=== PATIENT | female | born 1955 | race African-American/Black ===

== ENCOUNTER 2016-06-23 13:33 | Inpatient (IN) ==
[2016-06-23] MEDS ORDERED: ALBUTEROL/IPRATROPIUM 3 ML NEB RESP TX STA (14:27)
[2016-06-23] MEDS ORDERED: methylPREDNISolone SOD SUC 125 MG/2 ML VIAL IV STA (14:27)
--- NOTE | 2016-06-23 14:29 | Emergency Department Note ---
Arrival - Arrival Chief Complaint: Upper Respiratory Stated Complaint: has asthma severe SOB ED Nursing Triage Note: c/o having asthma attack that started last evening, states took extra breathing tx with no releif, + wheezing, + coughing, " its hard for me to breath" Mode of Arrival: Ambulatory Time Seen by Provider: 06/23/16 14:25 - History of Present Illness HPI Narrative: 60-year-old female presents today with complaint of shortness of breath. States symptoms began yesterday and got progressively worse through the night. Patient has a history of COPD and states she has been taking her albuterol MDI. Reports wheezing and coughing. Denies fever or recent illness. Allergies/Adverse Reactions: Allergies Allergy/AdvReac Type Severity Reaction Status Date / Time No Known Allergies Allergy Verified 06/23/16 13:40 Home Medications: Home Medications Medication Instructions Recorded Confirmed Type Indomethacin Cap [Indocin Cap] 25 mg PO TID #30 capsule 03/11/16 Rx Levofloxacin Tab [Levaquin Tab] 750 mg PO DAILY #10 tablet 03/11/16 Rx predniSONE TAB [PredniSONE] 20 mg PO DAILY #15 tablet 03/11/16 Rx Review of System - Review of System 12 point system: reviewed and no additional remarkable complaints except as stated - Review of System Constitutional: Present: as per HPI. Absent: fever Respiratory: Present: as per HPI, cough, wheezing Cardiovascular: Absent: chest pain Medical,Surgical,& Family Hx - Medical History Respiratory: History of: Asthma - Social History Smoking Status: Smoker, status unknown Frequency of Alcohol Use: None Type of Drug Use: None Exam Physical Examination: Gen.: Well-developed, well-nourished in no acute distress HEENT: Normocephalic. Pupils equal round and reactive to light with normal extraocular movement. Ear canals clear without discharge. Tympanic membranes with good light reflex and visualization of bony structures bilaterally. Throat without swelling, erythema or exudate. Neck: Supple without lymphadenopathy or nuchal rigidity Chest: Heart regular rate and rhythm without murmur. Lungs with wheezes bilaterally and poor air entry. Abdomen: Soft and nontender without masses. Bowel sounds normoactive. Back: Without CVA or point tenderness. Extremities: Full range of motion. No joint effusion or tenderness Skin: Clean dry and intact Vital Signs: Vital Signs Temperature 97.8 F 06/23/16 13:38 Pulse Rate 70 06/23/16 13:38 Respiratory Rate 20 06/23/16 13:38 Blood Pressure 151/94 06/23/16 13:38 O2 Sat by Pulse Oximetry 96 06/23/16 13:38 Course - Reevaluation(s) Reevaluation #1: Patient states she improved however he continues to show evidence of respiratory distress with tachypnea and significant wheezing. Time: 15:50 - Consultations Consultation #1: Case discussed with Dr. Rust. He will evaluate patient in the emergency department for admission. Time: 16:25 Results - Labs CBC & BMP: 06/23/16 14:33 06/23/16 14:33 Lab Results: I have reviewed the patients labs - Diagnostic Findings Procedure: Chest x-ray: report reviewed by me (unremarkable) Disposition Clinical Impression: COPD exacerbation Case discussed with: patient, patient's family Disposition: Still a Patient Condition: Guarded Time of Disposition: 16:26
[2016-06-23] MEDS ORDERED: methylPREDNISolone SOD SUC 125 MG/2 ML VIAL ONE (14:33)
[2016-06-23 14:46] LABS: Basophils % 0.4 % (0.0-0.8); Eosinophils # 1.6 10*3/uL (0.0-0.87); Eosinophils % 16.7 % (0.00-10.9); Hematocrit 43.7 VOL% (35.7-47.0); Hemoglobin 13.9 GM/DL (12.0-16.0); Immature Granulocytes % 0.2 %; Immature Granulocytes Absolute 0.02 #; Lymphocytes % 31.1 % (21.3-54.2); Mean Corpuscular HGB Conc 31.8 GM/DL (32-36); Mean Corpuscular Hemoglobin 29 PG (27-34); Mean Corpuscular Volume 89.7 FL (87-102); Mean Platelet Volume 9.6 FL (9.6-12.0); Monocytes # 0.5 10*3/uL (0.11-0.8); Monocytes % 5.1 % (1.7-12.7); Neutrophils # 4.6 10*3/uL (1.4-7.4); Neutrophils % 46.5 % (38.7-73.9); Platelet Count 316 T/CUMM (130-400); Red Blood Count 4.87 MC/CUMM (3.8-5.5); Red Cell Distribution Width 13.6 % (9.3-17.3); White Blood Count 9.8 T/CUMM (4-12)
[2016-06-23 15:07] LABS: Calcium 9.2 MG/DL (8.5-10.1); Osmolality,Calculated 286.6 MOS/KG (273-304); Potassium 4.1 MMOL/L (3.5-5.1)
[2016-06-23 16:12] LABS: Eosinophils 15 % (0-10); Lymphocytes 27 % (20-55); Segmented Neutrophils 55 % (50-85); Total Cells Counted 100
--- NOTE | 2016-06-23 16:12 | XRay Report ---
Exam: XR chest 2V Indication: Wheezing Comparison study: March 11, 2016 Findings: The heart, mediastinum and bony structures are stable from prior. Flattening the diaphragms with mild hyperexpansion of lungs and interstitial thickening changes in the hilar regions and upper lobes bilaterally are most compatible with COPD/scarring changes, which appear similar to prior. Faint airspace opacities within the superior aspect of the right lower lobe may represent atelectasis or underlying infectious/inflammatory infiltrates. There is no pneumothorax or pleural effusion identified. Cholecystectomy clips are noted. Impression: Similar chronic interstitial changes. Faint airspace opacities within the superior aspect of the right lower lobe may represent atelectasis or underlying infectious/inflammatory infiltrates. PROCEDURE INTERPRETED AT [facility] DEPARTMENT OF RADIOLOGY Final Report Signed by: Phil Douglas
[2016-06-23] MEDS ORDERED: ONDANSETRON 4 MG/2 ML VIAL IV PRN (18:11)
[2016-06-23] MEDS ORDERED: ALBUTEROL 2.5 MG/3 ML NEB RESP TX PRN (18:11)
[2016-06-23] MEDS ORDERED: ACETAMINOPHEN 325 MG TABLET PO PRN (18:11)
[2016-06-23] MEDS: SODIUM CHLORIDE 0.9% 1,000 ML IV SCH (18:46)
[2016-06-23] MEDS: ENOXAPARIN 40 MG/0.4 ML SYRINGE SUBCUT SCH (18:47)
[2016-06-23] MEDS: LEVOFLOXACIN INJ 500 MG in PREMIX 1 EACH IV SCH (18:47)
[2016-06-23] MEDS: ALBUTEROL/IPRATROPIUM 3 ML NEB RESP TX SCH ×2 (19:52→23:41)
--- NOTE | 2016-06-23 21:06 | Hospitalist History & Physical ---
Assessment and Plan (1) COPD exacerbation Status: Acute Assessment and plan: The patient will be treated with IV antibiotics, intravenous steroids, beta agonist nebulizerd breathing therapy. Anticipated length of stay 5 days Current Visit: Yes History of Present Illness Chief complaint: cough and shortness of breath History of present illness: Ms. 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 The patient states her last hospitalization for COPD was greater than 3 years ago. The patient states that she was in her usual state of health until 3 days prior to admission to the hospital when she began noticing worse dyspnea and cough with exertion. The patient's symptoms have progressed and are now moderate to severe, continuous, and worsening. The patient is unable to go to work today she came to the emergency room for further evaluation. The patient' s symptoms are associated with fever but not with chills she does have sputum production of colored material. The patient is admitted to the hospital for COPD exacerbation. Home Medications Medication Instructions Recorded Confirmed Type Albuterol Inhaler [Proventil 2 puff INH Q6H PRN 06/23/16 06/23/16 History Inhaler] Allergies Allergy/AdvReac Type Severity Reaction Status Date / Time No Known Allergies Allergy Verified 06/23/16 13:40 Medical,Surgical,& Family Hx - Medical History Respiratory: History of: Asthma - Surgical History Abdominal Surgeries: Surgical HX of: Appendectomy, Cholecystectomy Reproductive Surgeries: Surgical HX of;: Hysterectomy - Family History Family History: Reports;: Family Heart Disease (mom) - Social History Smoking Status: Former smoker Frequency of Alcohol Use: None Type of Drug Use: None Marital Status: Lives With:: Alone Functional capacity: independent ambulation 12 point system: reviewed and no additional remarkable complaints except as stated Exam - Constitutional Vitals: Period Temp Pulse Resp BP Sys/Ash Pulse Ox Last 24 Hr 97.5 F-98.6 F 67-91 20-22 128-164/67-84 93-94 Exam: Constitutional System: Moderate distress. Mild tremulousness. Head: Normocephalic, atraumatic. Ears, Nose and Throat System: No evidence of Otitis or Mastoiditis. No epistaxis or discharge Eyes System: Pupils equal, round, and reactive. Extraocular muscles intact. Neck: Supple, without adenopathy, No jugular venous distention. No thyromegaly , neck mass, or prior surgery apparent. Respiratory System: Chest moderate air trapping and moderate wheezing to auscultation. Minimal upper airway congestion Cardiovascular System: Heart with regular rate and rhythm. No murmur. GI System: Abdomen soft, nontender. Normoactive bowel sounds present. Musculoskeletal System: limbs with no pedal edema. Full distal pulses. Neurological System: No discernable sensory deficit. No aphasia Psychiatric System: Conversation is rational Results - Labs CBC & BMP: 06/23/16 14:33 06/23/16 14:33 Lab Results: I have reviewed the past 24 hour labs - Diagnostic Findings Procedure: Chest x-ray: image reviewed by me, report reviewed by me (mild peribronchial cuffing without specific infiltrate there is flattening of diaphragms)
[2016-06-23] MEDS: ZALEPLON 5 MG CAPSULE PO PRN (21:27)
[2016-06-23] MEDS: methylPREDNISolone SOD SUC 125 MG/2 ML VIAL IV SCH (21:27)
[2016-06-24] MEDS: methylPREDNISolone SOD SUC 125 MG/2 ML VIAL IV SCH ×4 (04:21→21:00)
[2016-06-24] MEDS: ALBUTEROL/IPRATROPIUM 3 ML NEB RESP TX SCH ×5 (05:43→19:39)
[2016-06-24 06:43] LABS: Basophils % 0.1 % (0.0-0.8); Hemoglobin 11.9 GM/DL (12.0-16.0); Immature Granulocytes % 0.4 %; Immature Granulocytes Absolute 0.03 #; Lymphocytes # 1.4 10*3/uL (1.4-4.0); Lymphocytes % 16.3 % (21.3-54.2); Mean Corpuscular HGB Conc 31.3 GM/DL (32-36); Mean Corpuscular Hemoglobin 28 PG (27-34); Mean Platelet Volume 10.1 FL (9.6-12.0); Monocytes # 0.1 10*3/uL (0.11-0.8); Monocytes % 1.2 % (1.7-12.7); Neutrophils # 6.9 10*3/uL (1.4-7.4); Platelet Count 288 T/CUMM (130-400); Red Blood Count 4.22 MC/CUMM (3.8-5.5); Red Cell Distribution Width 13.5 % (9.3-17.3); White Blood Count 8.5 T/CUMM (4-12)
[2016-06-24 07:10] LABS: Calcium 8.7 MG/DL (8.5-10.1); Magnesium 2.3 MG/DL (1.8-2.4); Osmolality,Calculated 290.6 MOS/KG (273-304); Potassium 4.6 MMOL/L (3.5-5.1)
[2016-06-24] MEDS: SODIUM CHLORIDE 0.9% 1,000 ML IV SCH (09:33)
[2016-06-24] MEDS: PANTOPRAZOLE 40 MG TABLET PO SCH (09:54)
--- NOTE | 2016-06-24 15:47 | Hospitalist Progress Note ---
Assessment and Plan (1) COPD exacerbation Status: Acute Assessment and plan: The patient will be treated with IV antibiotics, intravenous steroids, beta agonist nebulizerd breathing therapy. We will continue appropriate treatment for asthma and the patient is getting better. I can reduce steroid some today. Anticipate discharge home on Saturday or Saturday. Current Visit: Yes Hospitalist: Subjective Interval history: The patient was admitted to the hospital with severe COPD. Breathing is more relaxed now and she has less wheezing. Air trapping is moderate Exam - Constitutional Vitals: Period Temp Pulse Resp BP Sys/Ash Pulse Ox Last 24 Hr 97.5 F-98.6 F 53-91 16-22 108-164/67-95 93-100 Exam: Constitutional System: Less distress. Mild tremulousness. Head: Normocephalic, atraumatic. Ears, Nose and Throat System: No evidence of Otitis or Mastoiditis. No epistaxis or discharge Eyes System: Pupils equal, round, and reactive. Extraocular muscles intact. Neck: Supple, without adenopathy, No jugular venous distention. No thyromegaly , neck mass, or prior surgery apparent. Respiratory System: Chest moderate air trapping and moderate wheezing to auscultation. Minimal upper airway congestion Cardiovascular System: Heart with regular rate and rhythm. No murmur. GI System: Abdomen soft, nontender. Normoactive bowel sounds present. Musculoskeletal System: limbs with no pedal edema. Full distal pulses. Neurological System: No discernable sensory deficit. No aphasia Psychiatric System: Conversation is rational Results - Labs CBC & BMP: 06/24/16 05:49 06/24/16 05:49 Lab Results: I have reviewed the past 24 hour labs
[2016-06-24] MEDS: ENOXAPARIN 40 MG/0.4 ML SYRINGE SUBCUT SCH ×2 (16:52→17:16)
[2016-06-24] MEDS: LEVOFLOXACIN INJ 500 MG in PREMIX 1 EACH IV SCH ×2 (16:52→17:16)
[2016-06-24] MEDS: ZALEPLON 5 MG CAPSULE PO PRN (21:01)
[2016-06-25] MEDS: ALBUTEROL/IPRATROPIUM 3 ML NEB RESP TX SCH ×6 (00:02→19:45)
[2016-06-25] MEDS: methylPREDNISolone SOD SUC 125 MG/2 ML VIAL IV SCH ×4 (03:00→18:35)
[2016-06-25] MEDS: PANTOPRAZOLE 40 MG TABLET PO SCH (08:53)
--- NOTE | 2016-06-25 11:05 | Hospitalist Progress Note ---
Assessment and Plan (1) COPD exacerbation Status: Acute Assessment and plan: Patient's symptoms are improving. We'll continue with current treatment that she is receiving. Hopefully she can be discharged tomorrow. Current Visit: Yes Hospitalist: Subjective Interval history: Patient reports feeling well and hoping that she can go home tomorrow Exam - Constitutional Vitals: Period Temp Pulse Resp BP Sys/Ash Pulse Ox Last 24 Hr 97.9 F-98.3 F 56-75 16-20 104-161/66-95 92-100 General appearance: normal weight - Head Head exam: Present: normal inspection - Eye Eye exam: Present: EOMI Pupils: Present: LELAND - ENT ENT exam: Present: normal exam - Neck Neck exam: Present: normal inspection - Respiratory Respiratory exam: Present: prolonged expiratory phase - Cardiovascular Cardiovascular exam: Present: regular rate and rhythm - GI/Abdominal GI/Abdominal exam: Present: normal bowel sounds - Extremities Exam Extremities exam: Present: normal inspection Results - Labs CBC & BMP: 06/24/16 05:49 06/24/16 05:49
[2016-06-25] MEDS: SODIUM CHLORIDE 0.9% 1,000 ML IV SCH ×2 (14:05)
[2016-06-25] MEDS: LEVOFLOXACIN INJ 500 MG in PREMIX 1 EACH IV SCH (17:30)
[2016-06-25] MEDS: ENOXAPARIN 40 MG/0.4 ML SYRINGE SUBCUT SCH (17:30)
[2016-06-26] MEDS: ALBUTEROL/IPRATROPIUM 3 ML NEB RESP TX SCH ×3 (00:10→08:08)
[2016-06-26] MEDS: methylPREDNISolone SOD SUC 125 MG/2 ML VIAL IV SCH ×2 (03:34→10:00)
[2016-06-26] MEDS: PANTOPRAZOLE 40 MG TABLET PO SCH (08:39)
[2016-06-26] MEDS: SODIUM CHLORIDE 0.9% 1,000 ML IV SCH (08:41)
--- NOTE | 2016-06-26 10:53 | Discharge Summary ---
Hospital Course - Hospital Course Hospital Course: This is a 60-year-old -[place] Citizen female who works at this [employer] for [employer] store. Patient states that her last hospitalization for COPD was greater than 3 years ago. Patient reports that she was in the usual state of health until 3 days prior to this admission which began to notice worsening dyspnea and cough with exertion. The patient's symptoms progressed and are now moderate to severe. Patient was unable go to work and came to the emergency room for further evaluation. Patient has been having a mild fever. Patient was admitted to the hospital by Dr. Barrett. She was started on IV antibiotics steroids and breathing treatments. Patient symptoms improved fairly quickly while in the hospital. She's met her maximum benefit from this hospitalization we are discharging her home - Time spent with patient Time with patient DS: Greater than 30 minutes Diagnosis - Discharge Diagnosis (1) COPD exacerbation Status: Acute Discharge Plan - Discharge Data Disposition: Disch To Home/Self Care Condition at Discharge: Stable Discharge Diet: advance to your usual diet Activity: resume usual activities as tolerated - Discharge Medications New cephALEXin [Cephalexin] 500 mg PO Q12H #14 capsule predniSONE TAB [PredniSONE] 40 mg PO DAILY #14 tablet Continue Albuterol Inhaler [Proventil Inhaler] 2 puff INH Q6H PRN #1 inhaler PRN Reason: Shortness Of Breath/Wheezing - Follow Up or Referral - Forms/Instructions Exam - Constitutional Vitals: Period Temp Pulse Resp BP Sys/Ash Pulse Ox Last 24 Hr 97.3 F-98.6 F 63-95 16-25 109-130/62-74 92-100 General appearance: normal weight - Head Head exam: Present: normal inspection - Eye Eye exam: Present: EOMI Pupils: Present: LELAND - ENT ENT exam: Present: normal exam - Neck Neck exam: Present: normal inspection - Respiratory Respiratory exam: Present: prolonged expiratory phase improved - Cardiovascular Cardiovascular exam: Present: regular rate and rhythm - GI/Abdominal GI/Abdominal exam: Present: normal bowel sounds - Extremities Exam Extremities exam: Present: normal inspection DS: Provider Date of admission: 06/23/16 16:33 Primary care physician: . No PCP Attending physician on admission: Marshal Barrett MD Discharging clinician: Rigoberto Martins MD
[2016-06-26 12:11] VITALS: BP 147/84
== END 2016-06-26 12:10 | disposition home or self-care (01) | DRG 192 ==
LOC: N.ED 13:33 → N.EDINP 16:33 → SUATTDRO 16:33 → N.5E 17:59
PROVIDERS: ADMIT Internal Medicine; ATTEND Internal Medicine

== ENCOUNTER 2017-07-14 17:16 | Inpatient (IN) ==
[2017-07-14] MEDS ORDERED: ALBUTEROL 2.5 MG/3 ML NEB RESP TX STA (17:59)
[2017-07-14] MEDS ORDERED: ONDANSETRON 4 MG/2 ML VIAL IV STA (17:59)
[2017-07-14] MEDS ORDERED: MORPHINE 2 MG/1 ML SYRINGE IV STA (17:59)
[2017-07-14] MEDS ORDERED: ONDANSETRON 4 MG/2 ML VIAL ONE ×2 (18:11→22:15)
[2017-07-14] MEDS ORDERED: MORPHINE 2 MG/1 ML SYRINGE ONE ×4 (18:11→22:16)
[2017-07-14 18:13] LABS: Basophils % 0.4 % (0.0-0.8); Eosinophils # 0.5 10*3/uL (0.0-0.87); Eosinophils % 6.7 % (0.00-10.9); Hematocrit 39.7 VOL% (35.7-47.0); Hemoglobin 13.2 GM/DL (12.0-16.0); Immature Granulocytes % 0.1 %; Immature Granulocytes Absolute 0.01 #; Lymphocytes # 1.7 10*3/uL (1.4-4.0); Lymphocytes % 21.3 % (21.3-54.2); Mean Corpuscular HGB Conc 33.2 GM/DL (32-36); Mean Corpuscular Hemoglobin 29 PG (27-34); Mean Corpuscular Volume 87.8 FL (87-102); Mean Platelet Volume 9.6 FL (9.6-12.0); Monocytes # 0.4 10*3/uL (0.11-0.8); Monocytes % 5.7 % (1.7-12.7); Neutrophils # 5.1 10*3/uL (1.4-7.4); Neutrophils % 65.8 % (38.7-73.9); Platelet Count 334 T/CUMM (130-400); Red Blood Count 4.52 MC/CUMM (3.8-5.5); Red Cell Distribution Width 13.2 % (9.3-17.3); White Blood Count 7.8 T/CUMM (4-12)
[2017-07-14 18:40] LABS: Apearance,Urine CLEAR (Clear); Bilirubin,Urine Negative (Negative); Blood, Urine Moderate mg/dL (Negative); Glucose,Urine (UA) Negative (Negative); Hyaline Casts,Urine 1 /LPF (0-3); Ketones,Urine 20 mg/dL (Negative); Mucus,Urine Few /LPF (Occasional); Nitrite,Urine Negative (Negative); Protein,Urine Negative; RBC,Urine 2 /HPF (0-4); Squamous Epithelial Cell,Urine Occasional /HPF (0-10); Urine Color Yellow (Yellow); Urine Specific Gravity 1.012 (1.001-1.035); Urine Urobilinogen < 2.0 EU/DL (0.2-1.0); WBC,Urine 1 /HPF (0-6)
[2017-07-14 18:42] LABS: Albumin 3.9 G/DL (3.4-5.0); Bilirubin,Total 0.5 MG/DL (0.2-1.0); Calcium 9.3 MG/DL (8.5-10.1); Osmolality,Calculated 278.3 MOS/KG (273-304); Potassium 3.7 MMOL/L (3.5-5.1)
[2017-07-14 18:44] LABS: Troponin I Only < 0.015 NG/ML (0.00-0.045)
[2017-07-14] MEDS ORDERED: ONDANSETRON 4 MG/2 ML VIAL IV PRN (20:41)
[2017-07-14] MEDS: MORPHINE 2 MG/1 ML SYRINGE IV PRN (22:23)
[2017-07-14] MEDS: DEXTROSE 5% LACTATED RINGERS 1,000 ML IV SCH (23:00)
[2017-07-15 05:26] LABS: White Blood Count 6.5 T/CUMM (4-12)
[2017-07-15 05:27] LABS: Basophils % 0.3 % (0.0-0.8); Eosinophils # 0.6 10*3/uL (0.0-0.87); Eosinophils % 8.6 % (0.00-10.9); Hematocrit 34.1 VOL% (35.7-47.0); Hemoglobin 11.2 GM/DL (12.0-16.0); Immature Granulocytes % 0.2 %; Immature Granulocytes Absolute 0.01 #; Lymphocytes # 2.4 10*3/uL (1.4-4.0); Lymphocytes % 36.2 % (21.3-54.2); Mean Corpuscular HGB Conc 32.8 GM/DL (32-36); Mean Corpuscular Hemoglobin 29 PG (27-34); Mean Corpuscular Volume 88.3 FL (87-102); Mean Platelet Volume 9.9 FL (9.6-12.0); Monocytes # 0.5 10*3/uL (0.11-0.8); Neutrophils % 46.7 % (38.7-73.9); Platelet Count 288 T/CUMM (130-400); Red Blood Count 3.86 MC/CUMM (3.8-5.5); Red Cell Distribution Width 13.3 % (9.3-17.3)
[2017-07-15 05:39] LABS: Calcium 8.3 MG/DL (8.5-10.1); Osmolality,Calculated 281.1 MOS/KG (273-304); Potassium 3.1 MMOL/L (3.5-5.1)
[2017-07-15] MEDS ORDERED: ACETAMINOPHEN 325 MG TABLET PO PRN (07:13)
[2017-07-15] MEDS: DEXTROSE 5% LACTATED RINGERS 1,000 ML IV SCH ×3 (07:23→23:54)
[2017-07-15] MEDS: PANTOPRAZOLE 40 MG TABLET PO SCH (08:23)
[2017-07-15] MEDS ORDERED: PHENOL 1.4% THROAT SPRAY 177 ML BOTTLE PO PRN (11:29)
[2017-07-15] MEDS: ALBUTEROL/IPRATROPIUM 3 ML NEB RESP TX SCH ×2 (13:10→19:13)
[2017-07-15] MEDS: POTASSIUM CHLORIDE RIDER 10 MEQ in PREMIX 1 EACH IV PRN ×4 (14:41→18:51)
[2017-07-15] MEDS: MORPHINE 2 MG/1 ML SYRINGE IV PRN (20:06)
[2017-07-16] MEDS: ALBUTEROL/IPRATROPIUM 3 ML NEB RESP TX SCH ×4 (00:17→19:00)
[2017-07-16] MEDS: MORPHINE 2 MG/1 ML SYRINGE IV PRN ×4 (03:39→22:53)
[2017-07-16] MEDS: POTASSIUM CHLORIDE RIDER 10 MEQ in PREMIX 1 EACH IV PRN ×2 (03:46→05:15)
[2017-07-16 05:41] LABS: Calcium 8.4 MG/DL (8.5-10.1); Osmolality,Calculated 283.8 MOS/KG (273-304); Potassium 3.6 MMOL/L (3.5-5.1)
[2017-07-16] MEDS: DEXTROSE 5% LACTATED RINGERS 1,000 ML IV SCH ×3 (05:56→20:54)
[2017-07-16] MEDS: PANTOPRAZOLE 40 MG TABLET PO SCH (08:41)
[2017-07-16] MEDS: ENOXAPARIN 40 MG/0.4 ML SYRINGE SUBCUT SCH (13:35)
[2017-07-17] MEDS: ALBUTEROL/IPRATROPIUM 3 ML NEB RESP TX SCH ×4 (00:50→20:46)
[2017-07-17] MEDS: DEXTROSE 5% LACTATED RINGERS 1,000 ML IV SCH ×5 (01:50→19:42)
[2017-07-17 06:35] LABS: Calcium 8.8 MG/DL (8.5-10.1); Osmolality,Calculated 284.7 MOS/KG (273-304); Potassium 3.5 MMOL/L (3.5-5.1)
[2017-07-17] MEDS: LEVOFLOXACIN INJ 500 MG in PREMIX 1 EACH IV SCH (09:59)
[2017-07-17] MEDS: methylPREDNISolone SOD SUC 40 MG/1 ML VIAL IV SCH (10:01)
[2017-07-17] MEDS: PANTOPRAZOLE 40 MG TABLET PO SCH (10:01)
[2017-07-17] MEDS: ENOXAPARIN 40 MG/0.4 ML SYRINGE SUBCUT SCH (18:20)
[2017-07-18] MEDS: ALBUTEROL/IPRATROPIUM 3 ML NEB RESP TX SCH ×2 (00:58→07:28)
[2017-07-18] MEDS: DEXTROSE 5% LACTATED RINGERS 1,000 ML IV SCH (04:45)
[2017-07-18] MEDS: LEVOFLOXACIN INJ 500 MG in PREMIX 1 EACH IV SCH (09:21)
[2017-07-18] MEDS: PANTOPRAZOLE 40 MG TABLET PO SCH (09:21)
[2017-07-18] MEDS: methylPREDNISolone SOD SUC 40 MG/1 ML VIAL IV SCH (10:26)
[2017-07-18 11:14] VITALS: BP 115/53
[2017-07-18] MEDS: ENOXAPARIN 40 MG/0.4 ML SYRINGE SUBCUT SCH (14:15)
== END 2017-07-18 13:09 | disposition home or self-care (01) | DRG 390 ==
LOC: N.ED 17:16 → N.EDINP 20:41 → N.3E 21:12
PROVIDERS: ADMIT Surgery; ATTEND Surgery

== ENCOUNTER 2017-08-22 10:39 | Inpatient (IN) ==
[2017-08-22] MEDS ORDERED: HYDROmorphone 2 MG/1 ML VIAL IV STA (10:53)
[2017-08-22] MEDS ORDERED: ONDANSETRON 4 MG/2 ML VIAL IV STA (10:53)
[2017-08-22] MEDS ORDERED: SODIUM CHLORIDE 0.9% 1,000 ML IV STA (10:53)
[2017-08-22 11:26] LABS: Basophils % 0.5 % (0.0-0.8); Eosinophils # 0.3 10*3/uL (0.0-0.87); Eosinophils % 4.5 % (0.00-10.9); Hematocrit 41.6 VOL% (35.7-47.0); Hemoglobin 13.4 GM/DL (12.0-16.0); Immature Granulocytes % 0.3 %; Immature Granulocytes Absolute 0.02 #; Lymphocytes # 1.7 10*3/uL (1.4-4.0); Lymphocytes % 23.8 % (21.3-54.2); Mean Corpuscular HGB Conc 32.2 GM/DL (32-36); Mean Corpuscular Hemoglobin 29 PG (27-34); Mean Corpuscular Volume 90.8 FL (87-102); Mean Platelet Volume 9.4 FL (9.6-12.0); Monocytes # 0.4 10*3/uL (0.11-0.8); Monocytes % 5.5 % (1.7-12.7); Neutrophils # 4.8 10*3/uL (1.4-7.4); Neutrophils % 65.4 % (38.7-73.9); Platelet Count 303 T/CUMM (130-400); Red Blood Count 4.58 MC/CUMM (3.8-5.5); Red Cell Distribution Width 14.8 % (9.3-17.3); White Blood Count 7.3 T/CUMM (4-12)
[2017-08-22] MEDS ORDERED: ONDANSETRON 4 MG/2 ML VIAL ONE (11:30)
[2017-08-22] MEDS ORDERED: HYDROmorphone 2 MG/1 ML VIAL ONE (11:30)
[2017-08-22 11:35] LABS: Apearance,Urine CLEAR (Clear); Bilirubin,Urine Negative (Negative); Blood, Urine Negative (Negative); Glucose,Urine (UA) Negative (Negative); Ketones,Urine Negative (Negative); Mucus,Urine Occasional /LPF (Occasional); Nitrite,Urine Negative (Negative); Protein,Urine Negative; RBC,Urine 1 /HPF (0-4); Squamous Epithelial Cell,Urine Occasional /HPF (0-10); Urine Color Straw (Yellow); Urine Specific Gravity 1.005 (1.001-1.035); Urine Urobilinogen < 2.0 EU/DL (0.2-1.0); WBC,Urine <1 /HPF (0-6)
[2017-08-22 12:01] LABS: Albumin 3.7 G/DL (3.4-5.0); Bilirubin,Total 0.4 MG/DL (0.2-1.0); Calcium 9.2 MG/DL (8.5-10.1); Osmolality,Calculated 276.4 MOS/KG (273-304); Potassium 3.7 MMOL/L (3.5-5.1); Total Protein 7.2 G/DL (6.4-8.3)
[2017-08-22] MEDS ORDERED: ACETAMINOPHEN 325 MG TABLET PO PRN (16:55)
[2017-08-22] MEDS ORDERED: PROMETHAZINE 25 MG/1 ML VIAL IM PRN (16:55)
[2017-08-22] MEDS ORDERED: PHENYLEPHRINE PO PRN (16:55)
[2017-08-22] MEDS ORDERED: ONDANSETRON 4 MG/2 ML VIAL IV PRN (16:55)
[2017-08-22] MEDS ORDERED: HYDROmorphone 2 MG/1 ML VIAL IV PRN (16:55)
[2017-08-22] MEDS ORDERED: PROMETHAZINE PO PRN (16:55)
[2017-08-22] MEDS: LACTATED RINGERS 1,000 ML IV SCH (17:19)
[2017-08-22] MEDS ORDERED: ALBUTEROL 2.5 MG/3 ML NEB RESP TX PRN (19:00)
[2017-08-23] MEDS: LACTATED RINGERS 1,000 ML IV SCH ×2 (01:31→09:12)
[2017-08-23] MEDS ORDERED: ENOXAPARIN 40 MG/0.4 ML SYRINGE SUBCUT SCH (09:00)
[2017-08-23] MEDS ORDERED: PANTOPRAZOLE 40 MG VIAL IV SCH (09:00)
[2017-08-23 09:02] LABS: Basophils % 0.4 % (0.0-0.8); Eosinophils # 0.3 10*3/uL (0.0-0.87); Eosinophils % 4.6 % (0.00-10.9); Hematocrit 34.5 VOL% (35.7-47.0); Hemoglobin 10.8 GM/DL (12.0-16.0); Immature Granulocytes % 0.3 %; Immature Granulocytes Absolute 0.02 #; Lymphocytes # 2.2 10*3/uL (1.4-4.0); Lymphocytes % 30.4 % (21.3-54.2); Mean Corpuscular HGB Conc 31.3 GM/DL (32-36); Mean Corpuscular Hemoglobin 29 PG (27-34); Mean Corpuscular Volume 91.3 FL (87-102); Monocytes # 0.5 10*3/uL (0.11-0.8); Monocytes % 6.3 % (1.7-12.7); Neutrophils # 4.1 10*3/uL (1.4-7.4); Platelet Count 264 T/CUMM (130-400); Red Blood Count 3.78 MC/CUMM (3.8-5.5); Red Cell Distribution Width 14.8 % (9.3-17.3); White Blood Count 7.1 T/CUMM (4-12)
[2017-08-23 09:26] LABS: Calcium 8.1 MG/DL (8.5-10.1); Potassium 4.1 MMOL/L (3.5-5.1)
[2017-08-23 11:58] VITALS: BP 114/69
== END 2017-08-23 15:15 | disposition home or self-care (01) | DRG 392 ==
LOC: N.ED 10:39 → N.EDINP 15:51 → N.2E 16:54
PROVIDERS: ADMIT Surgery; ATTEND Surgery

== ENCOUNTER 2017-11-08 09:26 | Inpatient (IN) ==
[2017-11-08] MEDS ORDERED: ALBUTEROL/IPRATROPIUM 3 ML NEB RESP TX STA (09:34)
[2017-11-08] MEDS ORDERED: ALBUTEROL 2.5 MG/3 ML NEB RESP TX STA (09:36)
[2017-11-08] MEDS ORDERED: methylPREDNISolone SOD SUC 125 MG/2 ML VIAL ONE (09:37)
[2017-11-08] MEDS ORDERED: methylPREDNISolone SOD SUC 125 MG/2 ML VIAL IV STA (09:38)
[2017-11-08] MEDS ORDERED: MAGNESIUM SULF RIDER 0 ML IV ONE (09:39)
[2017-11-08] MEDS ORDERED: MAGNESIUM SULF RIDER 2 GM in PREMIX 1 EACH IV STA (09:43)
[2017-11-08 09:47] LABS: Basophils % 0.1 % (0.0-0.8); Eosinophils % 0.1 % (0.00-10.9); Hematocrit 42.8 VOL% (35.7-47.0); Hemoglobin 13.3 GM/DL (12.0-16.0); Immature Granulocytes % 0.3 %; Immature Granulocytes Absolute 0.02 #; Lymphocytes # 0.6 10*3/uL (1.4-4.0); Lymphocytes % 7.8 % (21.3-54.2); Mean Corpuscular HGB Conc 31.1 GM/DL (32-36); Mean Corpuscular Hemoglobin 28 PG (27-34); Mean Corpuscular Volume 91.3 FL (87-102); Mean Platelet Volume 9.3 FL (9.6-12.0); Monocytes # 0.1 10*3/uL (0.11-0.8); Monocytes % 1.3 % (1.7-12.7); Neutrophils # 7.2 10*3/uL (1.4-7.4); Neutrophils % 90.4 % (38.7-73.9); Platelet Count 304 T/CUMM (130-400); Red Blood Count 4.69 MC/CUMM (3.8-5.5); Red Cell Distribution Width 13.8 % (9.3-17.3); White Blood Count 7.9 T/CUMM (4-12)
[2017-11-08 09:55] LABS: PT Patient Result 10.8 SECS
[2017-11-08] MEDS ORDERED: PROPOFOL 1,000 MG/100 ML BOTTLE IV ONE (10:02)
[2017-11-08 10:08] LABS: Alanine Aminotransferase 25 U/L (13-56); Albumin 4.2 G/DL (3.4-5.0); Alkaline Phosphatase 60 U/L (45-117); Aspartate Amino Transferase 27 U/L (0-37); Bilirubin,Total < 0.39 MG/DL (0.2-1.0); Blood Urea Nitrogen 7 MG/DL (7-18); Calcium 9.3 MG/DL (8.5-10.1); Glucose 170 MG/DL (74-106); Osmolality,Calculated 284.1 MOS/KG (273-304); Sodium 142 MMOL/L (136-145); Total Protein 8.4 G/DL (6.4-8.3); Troponin I Only < 0.015 NG/ML (0.00-0.045)
[2017-11-08] MEDS ORDERED: ETOMIDATE 20 MG/10 ML VIAL IV ONE ×2 (10:08→10:09)
[2017-11-08] MEDS ORDERED: ROCURONIUM 100 MG/10 ML VIAL IV ONE ×2 (10:09)
[2017-11-08 10:26] LABS: ABG Base Excess -5.3 MMOL/L (-2.5-2.5); ABG HCO3 20.1 MMOL/L (20-26); ABG Oxygen Saturation 99.6 % (95-100); ABG PCO2 42.6 MM HG (35-48); ABG PH 7.301 (7.35-7.45); ABG TCO2 18.7 MMOL/L (23-27); Allen Test Positive; Pt O2 Delivery Device Ventilator
[2017-11-08] MEDS ORDERED: LEVOFLOXACIN INJ 500 MG in PREMIX 1 EACH IV SCH (10:30)
[2017-11-08 10:42] LABS: Apearance,Urine Slightly Hazy (Clear); Bacteria,Urine Few /HPF (Few); Bilirubin,Urine Negative (Negative); Blood, Urine Moderate mg/dL (Negative); Glucose,Urine (UA) Negative (Negative); Ketones,Urine Negative (Negative); Mucus,Urine Occasional /LPF (Occasional); Nitrite,Urine Negative (Negative); Protein,Urine 30 MG/DL; Squamous Epithelial Cell,Urine Occasional /HPF (0-10); Urine Color Yellow (Yellow); Urine Specific Gravity 1.009 (1.001-1.035); Urine Urobilinogen < 2.0 EU/DL (0.2-1.0); WBC,Urine 2 /HPF (0-6)
[2017-11-08 10:58] LABS: Barbiturates Screen,Urine Negative (Negative); Benzodiazepines Screen,Urine Negative (Negative); Cannabinoid Screen,Urine Negative (Negative); Opiate Screen,Urine Positive (Negative); Phencyclidine Screen,Urine Negative (Negative)
[2017-11-08] MEDS: PROPOFOL 1,000 MG/100 ML BOTTLE IV SCH ×3 (11:30→20:56)
[2017-11-08] MEDS: ENOXAPARIN 40 MG/0.4 ML SYRINGE SUBCUT SCH (12:00)
[2017-11-08] MEDS: THEOPHYLLINE 5.33 MG/ML 30 ML/BOTTLE NG SCH ×2 (12:00→23:50)
[2017-11-08] MEDS: DOXYCYCLINE HYCLATE INJ 100 MG in SODIUM CHLORIDE 0.9% 100 ML IV SCH ×2 (12:30→23:50)
[2017-11-08 13:16] LABS: Calcium 9.1 MG/DL (8.5-10.1); Osmolality,Calculated 286.3 MOS/KG (273-304); Potassium 3.4 MMOL/L (3.5-5.1)
[2017-11-08] MEDS: ALBUTEROL/IPRATROPIUM 3 ML NEB RESP TX SCH ×2 (13:19→19:22)
[2017-11-08 13:36] LABS: Lactic Acid 7.9 MMOL/L (0.4-2.0)
[2017-11-08] MEDS ORDERED: DEXTROSE 50% 25 GM/50 ML VIAL IV PRN (14:58)
[2017-11-08] MEDS ORDERED: GLUCAGON 1 MG VIAL IM PRN (14:58)
[2017-11-08] MEDS: MEROPENEM 500 MG in SYRINGE 1 EACH IV SCH ×2 (16:20→22:44)
[2017-11-08] MEDS: methylPREDNISolone SOD SUC 125 MG/2 ML VIAL IV SCH ×2 (16:25→22:44)
[2017-11-08 19:01] LABS: ABG Base Excess -4.4 MMOL/L (-2.5-2.5); ABG HCO3 24.8 MMOL/L (20-26); ABG Oxygen Saturation 99.1 % (95-100); ABG PCO2 65.3 MM HG (35-48); ABG PO2 219.3 MM HG (80-95); ABG TCO2 26.8 MMOL/L (23-27); Allen Test Positive; Pt O2 Delivery Device Ventilator
[2017-11-08 19:03] LABS: ABG PH 7.198 (7.35-7.45)
[2017-11-08] MEDS: MORPHINE 4 MG/1 ML VIAL IV PRN ×2 (19:30→23:32)
[2017-11-08 19:41] LABS: Lactic Acid 3.6 MMOL/L (0.4-2.0)
[2017-11-08 20:35] LABS: ABG Base Excess -3.4 MMOL/L (-2.5-2.5); ABG HCO3 21.6 MMOL/L (20-26); ABG Oxygen Saturation 98.8 % (95-100); ABG PCO2 51.3 MM HG (35-48); ABG PH 7.278 (7.35-7.45); ABG TCO2 21.6 MMOL/L (23-27)
[2017-11-08] MEDS: INSULIN REGULAR 100 UNIT/ML SUBCUT SCH ×2 (20:43→23:50)
[2017-11-08] MEDS: ALBUTEROL 2.5 MG/3 ML NEB RESP TX PRN (22:48)
[2017-11-08] MEDS ORDERED: LACTATED RINGERS 1,000 ML IV ONE (23:30)
[2017-11-09] MEDS: LACTATED RINGERS 1,000 ML IV SCH ×3 (00:29→21:39)
[2017-11-09] MEDS: ALBUTEROL/IPRATROPIUM 3 ML NEB RESP TX SCH ×7 (00:40→23:10)
[2017-11-09] MEDS: MORPHINE 4 MG/1 ML VIAL IV PRN ×3 (03:03→16:26)
[2017-11-09 03:36] LABS: ABG Base Excess -4.1 MMOL/L (-2.5-2.5); ABG Oxygen Saturation 98.5 % (95-100); ABG PCO2 51.2 MM HG (35-48); ABG PH 7.271 (7.35-7.45); ABG PO2 146.6 MM HG (80-95); ABG TCO2 24.6 MMOL/L (23-27); Allen Test Positive; Pt O2 Delivery Device Ventilator
[2017-11-09] MEDS: methylPREDNISolone SOD SUC 125 MG/2 ML VIAL IV SCH ×4 (04:43→21:38)
[2017-11-09] MEDS: PROPOFOL 1,000 MG/100 ML BOTTLE IV SCH ×4 (04:43→21:39)
[2017-11-09 05:54] LABS: Calcium 8.2 MG/DL (8.5-10.1); Osmolality,Calculated 284.3 MOS/KG (273-304); Potassium 4.1 MMOL/L (3.5-5.1)
[2017-11-09] MEDS: INSULIN REGULAR 100 UNIT/ML SUBCUT SCH ×4 (06:07→23:47)
[2017-11-09] MEDS: MEROPENEM 500 MG in SYRINGE 1 EACH IV SCH ×3 (06:15→23:46)
[2017-11-09] MEDS: THEOPHYLLINE 5.33 MG/ML 30 ML/BOTTLE NG SCH ×4 (06:19→23:47)
[2017-11-09] MEDS ORDERED: TERBUTALINE 1 MG/1 ML VIAL SUBCUT ONE (07:15)
[2017-11-09] MEDS ORDERED: LIDOCAINE 1% 20 ML VIAL MISC INJ ONE (07:15)
[2017-11-09] MEDS ORDERED: MIDAZOLAM 10 MG/2 ML VIAL ONE (07:41)
[2017-11-09] MEDS ORDERED: MIDAZOLAM 2 MG/2 ML VIAL IV ONE (07:44)
[2017-11-09] MEDS ORDERED: VECURONIUM 10 MG VIAL IV ONE ×2 (07:59)
[2017-11-09] MEDS: DORNASE ALFA 2.5 MG/2.5 ML VIAL RESP TX SCH ×2 (08:33→19:17)
[2017-11-09] MEDS: DOXYCYCLINE HYCLATE INJ 100 MG in SODIUM CHLORIDE 0.9% 100 ML IV SCH ×2 (12:00→23:47)
[2017-11-09] MEDS: ENOXAPARIN 40 MG/0.4 ML SYRINGE SUBCUT SCH (12:01)
[2017-11-10] MEDS: methylPREDNISolone SOD SUC 125 MG/2 ML VIAL IV SCH ×4 (01:58→20:58)
[2017-11-10] MEDS: ALBUTEROL/IPRATROPIUM 3 ML NEB RESP TX SCH ×6 (03:10→23:54)
[2017-11-10 04:02] LABS: ABG Base Excess 1.4 MMOL/L (-2.5-2.5); ABG Oxygen Saturation 98.2 % (95-100); ABG PCO2 47.6 MM HG (35-48); ABG PH 7.372 (7.35-7.45); ABG TCO2 28.5 MMOL/L (23-27)
[2017-11-10 04:11] LABS: Calcium 8.2 MG/DL (8.5-10.1); Osmolality,Calculated 280.7 MOS/KG (273-304); Potassium 5.3 MMOL/L (3.5-5.1)
[2017-11-10 04:14] LABS: Basophils % 0.1 % (0.0-0.8); Eosinophils % 0.2 % (0.00-10.9); Hematocrit 31.1 VOL% (35.7-47.0); Immature Granulocytes % 0.6 %; Immature Granulocytes Absolute 0.07 #; Lymphocytes # 0.6 10*3/uL (1.4-4.0); Mean Corpuscular HGB Conc 32.2 GM/DL (32-36); Mean Corpuscular Hemoglobin 29 PG (27-34); Mean Corpuscular Volume 89.6 FL (87-102); Monocytes # 0.3 10*3/uL (0.11-0.8); Monocytes % 2.8 % (1.7-12.7); Neutrophils % 91.3 % (38.7-73.9); Platelet Count 148 T/CUMM (130-400); Red Blood Count 3.47 MC/CUMM (3.8-5.5); Red Cell Distribution Width 14.4 % (9.3-17.3); White Blood Count 10.9 T/CUMM (4-12)
[2017-11-10 05:16] LABS: Band Neutrophils 4 % (0-10); Hypochromasia 1+; Lymphocytes 7 % (20-55); Platelet Estimate Normal; Segmented Neutrophils 87 % (50-85); Total Cells Counted 100
[2017-11-10] MEDS: INSULIN REGULAR 100 UNIT/ML SUBCUT SCH ×3 (05:32→18:26)
[2017-11-10] MEDS: PROPOFOL 1,000 MG/100 ML BOTTLE IV SCH ×3 (06:40→19:00)
[2017-11-10] MEDS: MEROPENEM 500 MG in SYRINGE 1 EACH IV SCH ×2 (07:21→17:26)
[2017-11-10] MEDS: THEOPHYLLINE 5.33 MG/ML 30 ML/BOTTLE NG SCH ×3 (07:21→18:27)
[2017-11-10] MEDS: DORNASE ALFA 2.5 MG/2.5 ML VIAL RESP TX SCH ×2 (07:37→19:23)
[2017-11-10] MEDS: LACTATED RINGERS 1,000 ML IV SCH ×2 (07:38→18:25)
[2017-11-10] MEDS: MORPHINE 4 MG/1 ML VIAL IV PRN ×2 (08:27→19:40)
[2017-11-10] MEDS: DOXYCYCLINE HYCLATE INJ 100 MG in SODIUM CHLORIDE 0.9% 100 ML IV SCH (12:32)
[2017-11-10] MEDS: ENOXAPARIN 40 MG/0.4 ML SYRINGE SUBCUT SCH (12:37)
[2017-11-11] MEDS: PROPOFOL 1,000 MG/100 ML BOTTLE IV SCH ×6 (00:16→23:39)
[2017-11-11] MEDS: INSULIN REGULAR 100 UNIT/ML SUBCUT SCH ×5 (00:16→23:26)
[2017-11-11] MEDS: THEOPHYLLINE 5.33 MG/ML 30 ML/BOTTLE NG SCH ×5 (00:33→23:23)
[2017-11-11] MEDS: MEROPENEM 500 MG in SYRINGE 1 EACH IV SCH ×4 (00:33→22:53)
[2017-11-11] MEDS: methylPREDNISolone SOD SUC 125 MG/2 ML VIAL IV SCH ×4 (00:34→18:12)
[2017-11-11] MEDS: DOXYCYCLINE HYCLATE INJ 100 MG in SODIUM CHLORIDE 0.9% 100 ML IV SCH ×3 (00:34→23:28)
[2017-11-11 03:21] LABS: ABG HCO3 31.1 MMOL/L (20-26); ABG Oxygen Saturation 98.5 % (95-100); ABG PCO2 47.9 MM HG (35-48); ABG PO2 160.8 MM HG (80-95); ABG TCO2 32.6 MMOL/L (23-27)
[2017-11-11] MEDS: ALBUTEROL/IPRATROPIUM 3 ML NEB RESP TX SCH ×6 (03:49→23:50)
[2017-11-11] MEDS: LACTATED RINGERS 1,000 ML IV SCH ×3 (04:03→22:54)
[2017-11-11 04:37] LABS: Basophils % 0.1 % (0.0-0.8); Hematocrit 29.6 VOL% (35.7-47.0); Hemoglobin 9.5 GM/DL (12.0-16.0); Immature Granulocytes % 0.7 %; Immature Granulocytes Absolute 0.07 #; Lymphocytes # 0.8 10*3/uL (1.4-4.0); Lymphocytes % 7.4 % (21.3-54.2); Mean Corpuscular HGB Conc 32.1 GM/DL (32-36); Mean Corpuscular Hemoglobin 29 PG (27-34); Mean Corpuscular Volume 89.2 FL (87-102); Mean Platelet Volume 10.9 FL (9.6-12.0); Monocytes # 0.3 10*3/uL (0.11-0.8); Monocytes % 3.3 % (1.7-12.7); Neutrophils # 9.2 10*3/uL (1.4-7.4); Neutrophils % 88.5 % (38.7-73.9); Platelet Count 130 T/CUMM (130-400); Red Blood Count 3.32 MC/CUMM (3.8-5.5); Red Cell Distribution Width 14.6 % (9.3-17.3); White Blood Count 10.3 T/CUMM (4-12)
[2017-11-11 05:02] LABS: Albumin 2.7 G/DL (3.4-5.0); Bilirubin,Total 0.5 MG/DL (0.2-1.0); Calcium 8.5 MG/DL (8.5-10.1); Potassium 4.7 MMOL/L (3.5-5.1); Total Protein 5.9 G/DL (6.4-8.3)
[2017-11-11 05:23] LABS: Hypochromasia 1+
[2017-11-11 05:24] LABS: Ovalocytes 1+; Platelet Estimate Normal
[2017-11-11] MEDS ORDERED: TERBUTALINE 1 MG/1 ML VIAL SUBCUT ONE (07:05)
[2017-11-11] MEDS: DORNASE ALFA 2.5 MG/2.5 ML VIAL RESP TX SCH ×2 (07:33→19:30)
[2017-11-11 08:19] LABS: ABG Base Excess 4.8 MMOL/L (-2.5-2.5); ABG HCO3 28.7 MMOL/L (20-26); ABG PCO2 63.5 MM HG (35-48); ABG TCO2 29.8 MMOL/L (23-27); Allen Test Positive; Pt O2 Delivery Device Ventilator
[2017-11-11] MEDS: ENOXAPARIN 40 MG/0.4 ML SYRINGE SUBCUT SCH (12:33)
[2017-11-11] MEDS: fentaNYL INJ 1,250 MCG in SODIUM CHLORIDE 0.9% 225 ML IV PRN (15:34)
[2017-11-11] MEDS ORDERED: PHENYLEPHRINE DRIP 40 MG/250 ML PREMIX IV PRN (20:18)
[2017-11-12] MEDS: methylPREDNISolone SOD SUC 125 MG/2 ML VIAL IV SCH ×4 (01:22→20:26)
[2017-11-12] MEDS: ALBUTEROL/IPRATROPIUM 3 ML NEB RESP TX SCH ×6 (03:27→23:32)
[2017-11-12 04:36] LABS: Basophils % 0.1 % (0.0-0.8); Hematocrit 29.1 VOL% (35.7-47.0); Hemoglobin 9.1 GM/DL (12.0-16.0); Immature Granulocytes % 1.2 %; Immature Granulocytes Absolute 0.14 #; Lymphocytes # 0.9 10*3/uL (1.4-4.0); Lymphocytes % 8.2 % (21.3-54.2); Mean Corpuscular HGB Conc 31.3 GM/DL (32-36); Mean Corpuscular Hemoglobin 28 PG (27-34); Mean Corpuscular Volume 90.9 FL (87-102); Mean Platelet Volume 9.6 FL (9.6-12.0); Monocytes # 0.3 10*3/uL (0.11-0.8); NRBC # 0.02 10*3/uL; Neutrophils % 87.5 % (38.7-73.9); Platelet Count 194 T/CUMM (130-400); Red Cell Distribution Width 14.4 % (9.3-17.3); White Blood Count 11.4 T/CUMM (4-12)
[2017-11-12 04:54] LABS: ABG Base Excess 8.9 MMOL/L (-2.5-2.5); ABG HCO3 32.7 MMOL/L (20-26); ABG Oxygen Saturation 97.7 % (95-100); ABG PCO2 46.9 MM HG (35-48); ABG PH 7.466 (7.35-7.45); ABG PO2 97.4 MM HG (80-95); ABG TCO2 30.9 MMOL/L (23-27)
[2017-11-12] MEDS: fentaNYL INJ 1,250 MCG in SODIUM CHLORIDE 0.9% 225 ML IV PRN ×3 (05:05→16:15)
[2017-11-12 05:07] LABS: Albumin 2.6 G/DL (3.4-5.0); Bilirubin,Total 0.6 MG/DL (0.2-1.0); Calcium 8.4 MG/DL (8.5-10.1); Osmolality,Calculated 296.7 MOS/KG (273-304); Potassium 4.8 MMOL/L (3.5-5.1); Total Protein 5.5 G/DL (6.4-8.3)
[2017-11-12] MEDS: THEOPHYLLINE 5.33 MG/ML 30 ML/BOTTLE NG SCH ×4 (06:00→23:03)
[2017-11-12] MEDS: INSULIN REGULAR 100 UNIT/ML SUBCUT SCH ×3 (06:01→17:49)
[2017-11-12] MEDS: MEROPENEM 500 MG in SYRINGE 1 EACH IV SCH ×3 (06:18→22:51)
[2017-11-12] MEDS: DORNASE ALFA 2.5 MG/2.5 ML VIAL RESP TX SCH ×2 (06:55→19:17)
[2017-11-12] MEDS ORDERED: HALOPERIDOL 5 MG/ML AMP ONE (07:30)
[2017-11-12] MEDS: HALOPERIDOL 5 MG/ML AMP IV SCH ×2 (08:00→20:26)
[2017-11-12] MEDS: TERBUTALINE 1 MG/1 ML VIAL SUBCUT SCH ×2 (08:50→20:26)
[2017-11-12] MEDS: DEXMEDETOMIDINE 200 MCG in SODIUM CHLORIDE 0.9% 48 ML IV PRN ×3 (08:50→22:34)
[2017-11-12] MEDS: LACTATED RINGERS 1,000 ML IV SCH ×2 (08:51→20:25)
[2017-11-12] MEDS: PROPOFOL 1,000 MG/100 ML BOTTLE IV SCH ×2 (10:36→22:57)
[2017-11-12] MEDS: DOXYCYCLINE HYCLATE INJ 100 MG in SODIUM CHLORIDE 0.9% 100 ML IV SCH ×2 (12:53→23:03)
[2017-11-12] MEDS: ENOXAPARIN 40 MG/0.4 ML SYRINGE SUBCUT SCH (12:53)
[2017-11-12] MEDS ORDERED: VECURONIUM 10 MG VIAL IV ONE ×2 (22:47→23:00)
[2017-11-13] MEDS: INSULIN REGULAR 100 UNIT/ML SUBCUT SCH ×4 (00:33→18:17)
[2017-11-13] MEDS: methylPREDNISolone SOD SUC 125 MG/2 ML VIAL IV SCH ×4 (00:35→19:32)
[2017-11-13] MEDS: fentaNYL INJ 1,250 MCG in SODIUM CHLORIDE 0.9% 225 ML IV PRN ×4 (01:10→17:31)
[2017-11-13] MEDS: ALBUTEROL/IPRATROPIUM 3 ML NEB RESP TX SCH ×6 (03:25→23:12)
[2017-11-13 03:40] LABS: ABG Base Excess 4.2 MMOL/L (-2.5-2.5); ABG HCO3 33.1 MMOL/L (20-26); ABG PO2 250.3 MM HG (80-95); ABG TCO2 35.5 MMOL/L (23-27)
[2017-11-13 03:43] LABS: ABG PCO2 77.3 MM HG (35-48)
[2017-11-13] MEDS ORDERED: VECURONIUM 10 MG VIAL IV ONE (04:15)
[2017-11-13] MEDS ORDERED: TERBUTALINE 1 MG/1 ML VIAL SUBCUT ONE (04:30)
[2017-11-13 04:55] LABS: Basophils % 0.1 % (0.0-0.8); Hematocrit 30.5 VOL% (35.7-47.0); Hemoglobin 9.3 GM/DL (12.0-16.0); Immature Granulocytes % 1.4 %; Immature Granulocytes Absolute 0.16 #; Lymphocytes # 0.8 10*3/uL (1.4-4.0); Lymphocytes % 6.4 % (21.3-54.2); Mean Corpuscular HGB Conc 30.5 GM/DL (32-36); Mean Corpuscular Hemoglobin 29 PG (27-34); Mean Corpuscular Volume 93.6 FL (87-102); Mean Platelet Volume 9.5 FL (9.6-12.0); Monocytes # 0.4 10*3/uL (0.11-0.8); Monocytes % 3.8 % (1.7-12.7); NRBC # 0.03 10*3/uL; Neutrophils # 10.4 10*3/uL (1.4-7.4); Neutrophils % 88.3 % (38.7-73.9); Platelet Count 200 T/CUMM (130-400); Red Blood Count 3.26 MC/CUMM (3.8-5.5); Red Cell Distribution Width 14.2 % (9.3-17.3); White Blood Count 11.7 T/CUMM (4-12)
[2017-11-13 05:26] LABS: Alanine Aminotransferase 95 U/L (13-56); Albumin 2.9 G/DL (3.4-5.0); Alkaline Phosphatase 37 U/L (45-117); Aspartate Amino Transferase 76 U/L (0-37); Bilirubin,Total < 0.39 MG/DL (0.2-1.0); Blood Urea Nitrogen 31 MG/DL (7-18); Calcium 7.9 MG/DL (8.5-10.1); Glucose 148 MG/DL (74-106); Potassium 5.1 MMOL/L (3.5-5.1); Sodium 143 MMOL/L (136-145); Total Protein 5.7 G/DL (6.4-8.3)
[2017-11-13 05:28] LABS: Albumin 2.6 G/DL (3.4-5.0); Bilirubin,Direct 0.11 MG/DL (0.0-0.20); Bilirubin,Indirect 0.3 MG/DL (0.0-1.0); Bilirubin,Total 0.4 MG/DL (0.2-1.0); Calcium 8.2 MG/DL (8.5-10.1); Osmolality,Calculated 294.8 MOS/KG (273-304); Potassium 5.1 MMOL/L (3.5-5.1); Total Protein 5.7 G/DL (6.4-8.3)
[2017-11-13] MEDS: MEROPENEM 500 MG in SYRINGE 1 EACH IV SCH ×3 (06:01→22:08)
[2017-11-13] MEDS: THEOPHYLLINE 5.33 MG/ML 30 ML/BOTTLE NG SCH (06:07)
[2017-11-13] MEDS: HALOPERIDOL 5 MG/ML AMP IV SCH ×3 (06:44→18:20)
[2017-11-13] MEDS ORDERED: FUROSEMIDE 40 MG/4 ML VIAL IV ONE (07:05)
[2017-11-13 07:23] LABS: ABG Base Excess 6.8 MMOL/L (-2.5-2.5); ABG Oxygen Saturation 93.8 % (95-100); ABG PCO2 64.7 MM HG (35-48); ABG PH 7.339 (7.35-7.45); ABG PO2 84.2 MM HG (80-95); Allen Test Positive; Pt O2 Delivery Device Ventilator
[2017-11-13] MEDS ORDERED: AMINOPHYLLINE 500 MG in SODIUM CHLORIDE 0.9% 480 ML IV SCH (07:30)
[2017-11-13] MEDS: LACTATED RINGERS 1,000 ML IV SCH ×2 (08:26→20:26)
[2017-11-13] MEDS: TERBUTALINE 1 MG/1 ML VIAL SUBCUT SCH ×2 (09:05→20:27)
[2017-11-13] MEDS: PROPOFOL 1,000 MG/100 ML BOTTLE IV SCH ×3 (10:07→22:45)
[2017-11-13] MEDS: DOXYCYCLINE HYCLATE INJ 100 MG in SODIUM CHLORIDE 0.9% 100 ML IV SCH (14:39)
[2017-11-13] MEDS: ENOXAPARIN 40 MG/0.4 ML SYRINGE SUBCUT SCH (14:39)
[2017-11-13] MEDS: THEOPHYLLINE 5.33 MG/ML 30 ML/BOTTLE PO SCH ×2 (14:40→22:08)
[2017-11-13] MEDS: DORNASE ALFA 2.5 MG/2.5 ML VIAL RESP TX SCH (19:18)
[2017-11-13] MEDS: fentaNYL INJ 2,500 MCG in SODIUM CHLORIDE 0.9% 450 ML IV PRN (22:46)
[2017-11-14] MEDS: HALOPERIDOL 5 MG/ML AMP IV SCH ×4 (00:13→18:42)
[2017-11-14] MEDS: INSULIN REGULAR 100 UNIT/ML SUBCUT SCH ×4 (00:13→18:26)
[2017-11-14] MEDS: DOXYCYCLINE HYCLATE INJ 100 MG in SODIUM CHLORIDE 0.9% 100 ML IV SCH ×2 (00:13→12:22)
[2017-11-14] MEDS: LACTATED RINGERS 1,000 ML IV SCH (00:14)
[2017-11-14] MEDS: methylPREDNISolone SOD SUC 125 MG/2 ML VIAL IV SCH ×4 (00:15→18:29)
[2017-11-14] MEDS: ALBUTEROL/IPRATROPIUM 3 ML NEB RESP TX SCH ×5 (03:00→19:06)
[2017-11-14 03:17] LABS: ABG Base Excess 10.5 MMOL/L (-2.5-2.5); ABG HCO3 34.2 MMOL/L (20-26); ABG Oxygen Saturation 94.6 % (95-100); ABG PCO2 56.8 MM HG (35-48); ABG PH 7.419 (7.35-7.45); ABG PO2 74.7 MM HG (80-95); ABG TCO2 33.9 MMOL/L (23-27); Allen Test Positive; Pt O2 Delivery Device Ventilator
[2017-11-14 04:16] LABS: Basophils % 0.1 % (0.0-0.8); Eosinophils % 0.1 % (0.00-10.9); Hematocrit 29.4 VOL% (35.7-47.0); Hemoglobin 8.9 GM/DL (12.0-16.0); Immature Granulocytes Absolute 0.25 #; Lymphocytes # 0.8 10*3/uL (1.4-4.0); Mean Corpuscular HGB Conc 30.3 GM/DL (32-36); Mean Corpuscular Hemoglobin 28 PG (27-34); Mean Platelet Volume 11.1 FL (9.6-12.0); Monocytes # 0.5 10*3/uL (0.11-0.8); Monocytes % 3.8 % (1.7-12.7); NRBC # 0.07 10*3/uL; Neutrophils # 11.3 10*3/uL (1.4-7.4); Red Blood Count 3.16 MC/CUMM (3.8-5.5); Red Cell Distribution Width 14.4 % (9.3-17.3); White Blood Count 12.8 T/CUMM (4-12)
[2017-11-14] MEDS: PROPOFOL 1,000 MG/100 ML BOTTLE IV SCH ×4 (04:30→20:44)
[2017-11-14 04:37] LABS: Platelet Count 136 T/CUMM (130-400)
[2017-11-14 04:57] LABS: Calcium 8.3 MG/DL (8.5-10.1); Osmolality,Calculated 286.3 MOS/KG (273-304); Potassium 5.1 MMOL/L (3.5-5.1)
[2017-11-14] MEDS: MEROPENEM 500 MG in SYRINGE 1 EACH IV SCH ×2 (06:16→18:38)
[2017-11-14] MEDS: THEOPHYLLINE 5.33 MG/ML 30 ML/BOTTLE PO SCH ×3 (06:17→21:31)
[2017-11-14] MEDS: PANTOPRAZOLE 40 MG VIAL IV SCH ×2 (10:14→21:27)
[2017-11-14] MEDS: TERBUTALINE 1 MG/1 ML VIAL SUBCUT SCH ×2 (10:21→21:27)
[2017-11-14] MEDS: chlordiazePOXIDE 10 MG CAPSULE NG SCH ×2 (10:35→21:27)
[2017-11-14] MEDS: FUROSEMIDE 40 MG/4 ML VIAL IV SCH (10:35)
[2017-11-14] MEDS: fentaNYL INJ 2,500 MCG in SODIUM CHLORIDE 0.9% 450 ML IV PRN (12:01)
[2017-11-14] MEDS: ENOXAPARIN 40 MG/0.4 ML SYRINGE SUBCUT SCH (12:15)
[2017-11-15] MEDS: MEROPENEM 500 MG in SYRINGE 1 EACH IV SCH ×4 (00:26→22:54)
[2017-11-15] MEDS: HALOPERIDOL 5 MG/ML AMP IV SCH ×5 (00:26→23:48)
[2017-11-15] MEDS: INSULIN REGULAR 100 UNIT/ML SUBCUT SCH ×5 (00:26→23:46)
[2017-11-15] MEDS: methylPREDNISolone SOD SUC 125 MG/2 ML VIAL IV SCH ×4 (00:27→18:23)
[2017-11-15] MEDS: DOXYCYCLINE HYCLATE INJ 100 MG in SODIUM CHLORIDE 0.9% 100 ML IV SCH ×3 (00:28→23:48)
[2017-11-15] MEDS: ALBUTEROL/IPRATROPIUM 3 ML NEB RESP TX SCH ×7 (00:47→23:18)
[2017-11-15] MEDS: PROPOFOL 1,000 MG/100 ML BOTTLE IV SCH ×6 (01:15→23:15)
[2017-11-15 03:42] LABS: ABG Base Excess 7.2 MMOL/L (-2.5-2.5); ABG Oxygen Saturation 93.9 % (95-100); ABG PCO2 58.3 MM HG (35-48); ABG PH 7.375 (7.35-7.45); ABG PO2 75.1 MM HG (80-95)
[2017-11-15 06:02] LABS: Basophils % 0.1 % (0.0-0.8); Hematocrit 28.2 VOL% (35.7-47.0); Hemoglobin 8.7 GM/DL (12.0-16.0); Immature Granulocytes % 2.5 %; Immature Granulocytes Absolute 0.39 #; Lymphocytes # 0.7 10*3/uL (1.4-4.0); Lymphocytes % 4.1 % (21.3-54.2); Mean Corpuscular HGB Conc 30.9 GM/DL (32-36); Mean Corpuscular Hemoglobin 28 PG (27-34); Mean Platelet Volume 9.8 FL (9.6-12.0); Monocytes # 0.6 10*3/uL (0.11-0.8); Monocytes % 3.6 % (1.7-12.7); Neutrophils # 14.3 10*3/uL (1.4-7.4); Neutrophils % 89.7 % (38.7-73.9); Platelet Count 232 T/CUMM (130-400); Red Cell Distribution Width 14.1 % (9.3-17.3); White Blood Count 15.9 T/CUMM (4-12)
[2017-11-15 06:19] LABS: Calcium 8.3 MG/DL (8.5-10.1); Osmolality,Calculated 287.4 MOS/KG (273-304)
[2017-11-15 08:18] LABS: Band Neutrophils 3 % (0-10); Lymphocytes 8 % (20-55); Segmented Neutrophils 86 % (50-85); Total Cells Counted 100
[2017-11-15 08:19] LABS: Platelet Estimate Normal
[2017-11-15] MEDS: PANTOPRAZOLE 40 MG VIAL IV SCH ×2 (08:22→20:23)
[2017-11-15] MEDS: FUROSEMIDE 40 MG/4 ML VIAL IV SCH (08:23)
[2017-11-15] MEDS: THEOPHYLLINE 5.33 MG/ML 30 ML/BOTTLE PO SCH ×2 (08:23→20:23)
[2017-11-15] MEDS: chlordiazePOXIDE 10 MG CAPSULE NG SCH ×2 (08:51→20:23)
[2017-11-15] MEDS: TERBUTALINE 1 MG/1 ML VIAL SUBCUT SCH ×2 (08:51→20:23)
[2017-11-15] MEDS: ENOXAPARIN 40 MG/0.4 ML SYRINGE SUBCUT SCH (12:28)
[2017-11-15] MEDS: BACITRACIN OINT 0.9 GM PACK TOP SCH ×2 (15:51→20:22)
[2017-11-15] MEDS: MORPHINE 4 MG/1 ML VIAL IV PRN (20:22)
[2017-11-15] MEDS: fentaNYL INJ 2,500 MCG in SODIUM CHLORIDE 0.9% 450 ML IV PRN (21:05)
[2017-11-16] MEDS: methylPREDNISolone SOD SUC 125 MG/2 ML VIAL IV SCH ×4 (01:20→18:29)
[2017-11-16] MEDS: ALBUTEROL/IPRATROPIUM 3 ML NEB RESP TX SCH ×5 (03:00→19:27)
[2017-11-16 04:29] LABS: ABG Base Excess 5.9 MMOL/L (-2.5-2.5); ABG HCO3 29.7 MMOL/L (20-26); ABG Oxygen Saturation 96.8 % (95-100); ABG PCO2 52.8 MM HG (35-48); ABG PH 7.392 (7.35-7.45); ABG PO2 93.3 MM HG (80-95); ABG TCO2 28.9 MMOL/L (23-27); Allen Test Positive; Pt O2 Delivery Device Ventilator
[2017-11-16 04:39] LABS: Basophils % 0.1 % (0.0-0.8); Hematocrit 29.1 VOL% (35.7-47.0); Hemoglobin 9.2 GM/DL (12.0-16.0); Immature Granulocytes % 4.6 %; Immature Granulocytes Absolute 0.77 #; Lymphocytes # 0.6 10*3/uL (1.4-4.0); Lymphocytes % 3.8 % (21.3-54.2); Mean Corpuscular HGB Conc 31.6 GM/DL (32-36); Mean Corpuscular Hemoglobin 28 PG (27-34); Mean Corpuscular Volume 89.5 FL (87-102); Mean Platelet Volume 9.8 FL (9.6-12.0); Monocytes # 0.5 10*3/uL (0.11-0.8); Monocytes % 3.1 % (1.7-12.7); Neutrophils # 14.7 10*3/uL (1.4-7.4); Neutrophils % 88.4 % (38.7-73.9); Platelet Count 243 T/CUMM (130-400); Red Blood Count 3.25 MC/CUMM (3.8-5.5); Red Cell Distribution Width 13.8 % (9.3-17.3); White Blood Count 16.7 T/CUMM (4-12)
[2017-11-16 04:54] LABS: Calcium 8.6 MG/DL (8.5-10.1); Osmolality,Calculated 284.5 MOS/KG (273-304); Potassium 3.7 MMOL/L (3.5-5.1)
[2017-11-16] MEDS: INSULIN REGULAR 100 UNIT/ML SUBCUT SCH ×3 (05:18→17:40)
[2017-11-16 05:43] LABS: Band Neutrophils 1 % (0-10); Hypochromasia 1+; Lymphocytes 10 % (20-55); Microcytosis 1+; Segmented Neutrophils 86 % (50-85); Total Cells Counted 100
[2017-11-16 05:44] LABS: Ovalocytes Slight; Platelet Estimate Normal; Target Cells Slight
[2017-11-16] MEDS: HALOPERIDOL 5 MG/ML AMP IV SCH ×3 (05:44→17:57)
[2017-11-16] MEDS: PROPOFOL 1,000 MG/100 ML BOTTLE IV SCH ×5 (05:45→22:02)
[2017-11-16] MEDS: MEROPENEM 500 MG in SYRINGE 1 EACH IV SCH ×3 (06:14→22:02)
[2017-11-16] MEDS: THEOPHYLLINE 5.33 MG/ML 30 ML/BOTTLE PO SCH ×2 (08:22→21:09)
[2017-11-16] MEDS: chlordiazePOXIDE 10 MG CAPSULE NG SCH (08:23)
[2017-11-16] MEDS: FUROSEMIDE 40 MG/4 ML VIAL IV SCH (08:23)
[2017-11-16] MEDS: TERBUTALINE 1 MG/1 ML VIAL SUBCUT SCH ×2 (08:23→21:08)
[2017-11-16] MEDS: BACITRACIN OINT 0.9 GM PACK TOP SCH ×2 (08:23→21:08)
[2017-11-16] MEDS: PANTOPRAZOLE 40 MG VIAL IV SCH ×2 (08:24→21:08)
[2017-11-16] MEDS: ENOXAPARIN 40 MG/0.4 ML SYRINGE SUBCUT SCH (11:53)
[2017-11-16] MEDS: DOXYCYCLINE HYCLATE INJ 100 MG in SODIUM CHLORIDE 0.9% 100 ML IV SCH (11:56)
[2017-11-16] MEDS ORDERED: BISACODYL 10 MG SUPP RECTAL ONE (16:46)
[2017-11-16] MEDS: chlordiazePOXIDE 25 MG CAPSULE NG SCH (21:08)
[2017-11-17] MEDS: DOXYCYCLINE HYCLATE INJ 100 MG in SODIUM CHLORIDE 0.9% 100 ML IV SCH ×2 (00:07→11:33)
[2017-11-17] MEDS: INSULIN REGULAR 100 UNIT/ML SUBCUT SCH ×4 (00:07→17:33)
[2017-11-17] MEDS: HALOPERIDOL 5 MG/ML AMP IV SCH ×4 (00:08→17:31)
[2017-11-17] MEDS: ALBUTEROL/IPRATROPIUM 3 ML NEB RESP TX SCH ×6 (00:16→18:57)
[2017-11-17] MEDS: methylPREDNISolone SOD SUC 125 MG/2 ML VIAL IV SCH ×4 (01:24→18:13)
[2017-11-17] MEDS: PROPOFOL 1,000 MG/100 ML BOTTLE IV SCH ×4 (02:21→16:29)
[2017-11-17 04:52] LABS: Basophils % 0.1 % (0.0-0.8); Hematocrit 25.4 VOL% (35.7-47.0); Hemoglobin 8.4 GM/DL (12.0-16.0); Immature Granulocytes Absolute 0.71 #; Lymphocytes # 0.5 10*3/uL (1.4-4.0); Lymphocytes % 3.6 % (21.3-54.2); Mean Corpuscular HGB Conc 33.1 GM/DL (32-36); Mean Corpuscular Hemoglobin 29 PG (27-34); Mean Corpuscular Volume 88.8 FL (87-102); Mean Platelet Volume 10.1 FL (9.6-12.0); Monocytes # 0.6 10*3/uL (0.11-0.8); Monocytes % 4.3 % (1.7-12.7); Neutrophils # 12.4 10*3/uL (1.4-7.4); Platelet Count 233 T/CUMM (130-400); Red Blood Count 2.86 MC/CUMM (3.8-5.5); Red Cell Distribution Width 13.8 % (9.3-17.3); White Blood Count 14.3 T/CUMM (4-12)
[2017-11-17 05:12] LABS: Calcium 7.9 MG/DL (8.5-10.1); Osmolality,Calculated 285.5 MOS/KG (273-304); Potassium 3.4 MMOL/L (3.5-5.1)
[2017-11-17 05:21] LABS: ABG Base Excess 8.9 MMOL/L (-2.5-2.5); ABG HCO3 34.1 MMOL/L (20-26); ABG Oxygen Saturation 95.3 % (95-100); ABG PCO2 50.4 MM HG (35-48); ABG PH 7.448 (7.35-7.45); ABG PO2 87.4 MM HG (80-95); ABG TCO2 35.6 MMOL/L (23-27); Allen Test Positive; Pt O2 Delivery Device Ventilator
[2017-11-17 05:22] LABS: Band Neutrophils 3 % (0-10); Lymphocytes 10 % (20-55); Platelet Estimate Normal; Segmented Neutrophils 83 % (50-85); Total Cells Counted 100
[2017-11-17] MEDS: MEROPENEM 500 MG in SYRINGE 1 EACH IV SCH ×3 (06:06→23:30)
[2017-11-17] MEDS: FUROSEMIDE 40 MG/4 ML VIAL IV SCH (08:08)
[2017-11-17] MEDS: BACITRACIN OINT 0.9 GM PACK TOP SCH ×2 (08:08→21:08)
[2017-11-17] MEDS: THEOPHYLLINE 5.33 MG/ML 30 ML/BOTTLE PO SCH ×2 (08:08→23:20)
[2017-11-17] MEDS: chlordiazePOXIDE 25 MG CAPSULE NG SCH (08:08)
[2017-11-17] MEDS: PANTOPRAZOLE 40 MG VIAL IV SCH ×2 (08:10→21:08)
[2017-11-17] MEDS: ENOXAPARIN 40 MG/0.4 ML SYRINGE SUBCUT SCH (11:36)
[2017-11-17] MEDS: busPIRone 5 MG TABLET PER TUBE SCH ×2 (12:57→21:08)
[2017-11-18] MEDS: ALBUTEROL/IPRATROPIUM 3 ML NEB RESP TX SCH ×6 (00:20→19:50)
[2017-11-18] MEDS: INSULIN REGULAR 100 UNIT/ML SUBCUT SCH ×4 (00:30→18:20)
[2017-11-18] MEDS: PROPOFOL 1,000 MG/100 ML BOTTLE IV SCH ×2 (01:00→10:30)
[2017-11-18] MEDS: methylPREDNISolone SOD SUC 125 MG/2 ML VIAL IV SCH ×4 (01:24→18:20)
[2017-11-18] MEDS: HALOPERIDOL 5 MG/ML AMP IV SCH ×2 (01:24→06:04)
[2017-11-18] MEDS: DOXYCYCLINE HYCLATE INJ 100 MG in SODIUM CHLORIDE 0.9% 100 ML IV SCH ×2 (01:24→11:40)
[2017-11-18 04:44] LABS: Pt O2 Delivery Device Ventilator
[2017-11-18 04:50] LABS: Basophils % 0.1 % (0.0-0.8); Hematocrit 30.5 VOL% (35.7-47.0); Immature Granulocytes % 6.7 %; Immature Granulocytes Absolute 1.39 #; Lymphocytes # 0.6 10*3/uL (1.4-4.0); Lymphocytes % 2.8 % (21.3-54.2); Mean Corpuscular HGB Conc 32.8 GM/DL (32-36); Mean Corpuscular Hemoglobin 29 PG (27-34); Mean Corpuscular Volume 87.6 FL (87-102); Mean Platelet Volume 9.5 FL (9.6-12.0); Monocytes # 0.8 10*3/uL (0.11-0.8); Monocytes % 3.7 % (1.7-12.7); NRBC # 0.02 10*3/uL; Neutrophils % 86.7 % (38.7-73.9); Platelet Count 256 T/CUMM (130-400); Red Blood Count 3.48 MC/CUMM (3.8-5.5); Red Cell Distribution Width 14.3 % (9.3-17.3); White Blood Count 20.8 T/CUMM (4-12)
[2017-11-18 04:53] LABS: ABG Base Excess 7.6 MMOL/L (-2.5-2.5); ABG HCO3 31.4 MMOL/L (20-26); ABG Oxygen Saturation 98.5 % (95-100); ABG PCO2 45.3 MM HG (35-48); ABG PH 7.462 (7.35-7.45); ABG TCO2 29.3 MMOL/L (23-27)
[2017-11-18 05:14] LABS: Calcium 8.4 MG/DL (8.5-10.1); Osmolality,Calculated 292.1 MOS/KG (273-304); Potassium 3.7 MMOL/L (3.5-5.1)
[2017-11-18 05:22] LABS: Band Neutrophils 2 % (0-10); Hypochromasia 1+; Lymphocytes 2 % (20-55); Platelet Estimate Adequate; Segmented Neutrophils 92 % (50-85); Total Cells Counted 100
[2017-11-18] MEDS: MEROPENEM 500 MG in SYRINGE 1 EACH IV SCH ×2 (06:05→15:15)
[2017-11-18 08:32] LABS: ABG Base Excess 7.5 MMOL/L (-2.5-2.5); ABG HCO3 31.6 MMOL/L (20-26); ABG Oxygen Saturation 97.8 % (95-100); ABG PCO2 42.7 MM HG (35-48); ABG PH 7.487 (7.35-7.45); ABG PO2 118.4 MM HG (80-95); ABG TCO2 32.9 MMOL/L (23-27)
[2017-11-18] MEDS: BACITRACIN OINT 0.9 GM PACK TOP SCH ×2 (09:15→21:33)
[2017-11-18] MEDS: FUROSEMIDE 40 MG/4 ML VIAL IV SCH (09:15)
[2017-11-18] MEDS: busPIRone 5 MG TABLET PER TUBE SCH ×2 (09:15→21:33)
[2017-11-18] MEDS: PANTOPRAZOLE 40 MG VIAL IV SCH ×2 (09:15→21:34)
[2017-11-18] MEDS: THEOPHYLLINE 5.33 MG/ML 30 ML/BOTTLE PO SCH ×2 (09:15→21:33)
[2017-11-18 11:03] LABS: ABG Base Excess 9.4 MMOL/L (-2.5-2.5); ABG HCO3 33.1 MMOL/L (20-26); ABG Oxygen Saturation 94.6 % (95-100); ABG PCO2 40.2 MM HG (35-48); ABG PH 7.524 (7.35-7.45); ABG PO2 70.6 MM HG (80-95); ABG TCO2 29.5 MMOL/L (23-27)
[2017-11-18] MEDS: ENOXAPARIN 40 MG/0.4 ML SYRINGE SUBCUT SCH (11:40)
[2017-11-18] MEDS: METOPROLOL TARTRATE 5 MG/5 ML VIAL IV PRN (11:40)
[2017-11-18] MEDS: FLUCONAZOLE INJ 200 MG in PREMIX 1 EACH IV SCH (11:45)
[2017-11-18] MEDS: NICOTINE 14 MG/24 HR PATCH TRANSDERM SCH (12:58)
[2017-11-19] MEDS: ALBUTEROL/IPRATROPIUM 3 ML NEB RESP TX SCH ×7 (00:22→23:23)
[2017-11-19] MEDS: DOXYCYCLINE HYCLATE INJ 100 MG in SODIUM CHLORIDE 0.9% 100 ML IV SCH (00:30)
[2017-11-19] MEDS: MEROPENEM 500 MG in SYRINGE 1 EACH IV SCH ×2 (01:01→06:43)
[2017-11-19] MEDS: INSULIN REGULAR 100 UNIT/ML SUBCUT SCH ×5 (01:02→23:24)
[2017-11-19] MEDS: METOPROLOL TARTRATE 5 MG/5 ML VIAL IV PRN (01:03)
[2017-11-19] MEDS: methylPREDNISolone SOD SUC 125 MG/2 ML VIAL IV SCH ×2 (01:41→06:43)
[2017-11-19 04:57] LABS: Basophils % 0.1 % (0.0-0.8); Hematocrit 34.4 VOL% (35.7-47.0); Hemoglobin 11.2 GM/DL (12.0-16.0); Immature Granulocytes % 4.7 %; Immature Granulocytes Absolute 1.11 #; Lymphocytes # 0.5 10*3/uL (1.4-4.0); Mean Corpuscular HGB Conc 32.6 GM/DL (32-36); Mean Corpuscular Hemoglobin 28 PG (27-34); Mean Corpuscular Volume 87.1 FL (87-102); Mean Platelet Volume 9.4 FL (9.6-12.0); Monocytes # 0.8 10*3/uL (0.11-0.8); Monocytes % 3.5 % (1.7-12.7); NRBC # 0.02 10*3/uL; Neutrophils % 89.7 % (38.7-73.9); Platelet Count 280 T/CUMM (130-400); Red Blood Count 3.95 MC/CUMM (3.8-5.5); Red Cell Distribution Width 14.7 % (9.3-17.3); White Blood Count 23.4 T/CUMM (4-12)
[2017-11-19 05:25] LABS: Band Neutrophils 3 % (0-10); Hypochromasia 1+; Lymphocytes 1 % (20-55); Ovalocytes Slight; Platelet Estimate Adequate; Segmented Neutrophils 92 % (50-85); Total Cells Counted 100
[2017-11-19 05:46] LABS: Calcium 8.9 MG/DL (8.5-10.1); Osmolality,Calculated 299.6 MOS/KG (273-304); Potassium 3.2 MMOL/L (3.5-5.1)
[2017-11-19] MEDS: THEOPHYLLINE 5.33 MG/ML 30 ML/BOTTLE PO SCH ×2 (09:37→21:05)
[2017-11-19] MEDS: BACITRACIN OINT 0.9 GM PACK TOP SCH ×2 (09:41→21:25)
[2017-11-19] MEDS: busPIRone 5 MG TABLET PER TUBE SCH ×2 (09:41→21:25)
[2017-11-19] MEDS: FUROSEMIDE 40 MG/4 ML VIAL IV SCH (09:42)
[2017-11-19] MEDS: NICOTINE 14 MG/24 HR PATCH TRANSDERM SCH (09:44)
[2017-11-19] MEDS: PANTOPRAZOLE 40 MG VIAL IV SCH ×2 (09:44→21:26)
[2017-11-19] MEDS: FLUCONAZOLE INJ 200 MG in PREMIX 1 EACH IV SCH (12:05)
[2017-11-19] MEDS: ENOXAPARIN 40 MG/0.4 ML SYRINGE SUBCUT SCH (12:06)
[2017-11-19] MEDS: methylPREDNISolone SOD SUC 40 MG/1 ML VIAL IV SCH ×2 (16:36→23:14)
[2017-11-20] MEDS: ALBUTEROL/IPRATROPIUM 3 ML NEB RESP TX SCH ×4 (02:35→19:37)
[2017-11-20 05:16] LABS: Basophils % 0.1 % (0.0-0.8); Hematocrit 32.9 VOL% (35.7-47.0); Hemoglobin 10.8 GM/DL (12.0-16.0); Immature Granulocytes % 1.8 %; Immature Granulocytes Absolute 0.32 #; Lymphocytes # 0.3 10*3/uL (1.4-4.0); Lymphocytes % 1.7 % (21.3-54.2); Mean Corpuscular HGB Conc 32.8 GM/DL (32-36); Mean Corpuscular Hemoglobin 29 PG (27-34); Mean Corpuscular Volume 88.2 FL (87-102); Mean Platelet Volume 9.6 FL (9.6-12.0); Monocytes # 0.8 10*3/uL (0.11-0.8); Monocytes % 4.2 % (1.7-12.7); Neutrophils # 16.7 10*3/uL (1.4-7.4); Neutrophils % 92.2 % (38.7-73.9); Platelet Count 242 T/CUMM (130-400); Red Blood Count 3.73 MC/CUMM (3.8-5.5); Red Cell Distribution Width 15.2 % (9.3-17.3); White Blood Count 18.2 T/CUMM (4-12)
[2017-11-20 05:34] LABS: Calcium 8.1 MG/DL (8.5-10.1); Hypochromasia 1+; Lymphocytes 2 % (20-55); Osmolality,Calculated 300.6 MOS/KG (273-304); Platelet Estimate Adequate; Potassium 3.6 MMOL/L (3.5-5.1); Segmented Neutrophils 94 % (50-85); Total Cells Counted 100
[2017-11-20] MEDS: INSULIN REGULAR 100 UNIT/ML SUBCUT SCH ×3 (06:10→18:03)
[2017-11-20] MEDS: methylPREDNISolone SOD SUC 40 MG/1 ML VIAL IV SCH (07:55)
[2017-11-20] MEDS: busPIRone 5 MG TABLET PER TUBE SCH (08:52)
[2017-11-20] MEDS: THEOPHYLLINE 5.33 MG/ML 30 ML/BOTTLE PO SCH (08:52)
[2017-11-20] MEDS: PANTOPRAZOLE 40 MG VIAL IV SCH ×2 (08:53→23:20)
[2017-11-20] MEDS: FUROSEMIDE 40 MG/4 ML VIAL IV SCH (08:53)
[2017-11-20] MEDS: NICOTINE 14 MG/24 HR PATCH TRANSDERM SCH (08:54)
[2017-11-20] MEDS ORDERED: methylPREDNISolone SOD SUC 40 MG/1 ML VIAL IV SCH (09:00)
[2017-11-20] MEDS: FUROSEMIDE 40 MG TABLET PO SCH (09:17)
[2017-11-20] MEDS: BACITRACIN OINT 0.9 GM PACK TOP SCH ×2 (09:17→23:31)
[2017-11-20] MEDS: FLUCONAZOLE INJ 200 MG in PREMIX 1 EACH IV SCH (11:36)
[2017-11-20] MEDS: ENOXAPARIN 40 MG/0.4 ML SYRINGE SUBCUT SCH (11:36)
[2017-11-20] MEDS ORDERED: BISACODYL 10 MG SUPP RECTAL PRN (15:03)
[2017-11-20] MEDS ORDERED: BISACODYL 10 MG SUPP RECTAL ONE (15:03)
[2017-11-20] MEDS ORDERED: LACTULOSE 20 GM/30 ML UDCUP PO PRN (15:04)
[2017-11-20 19:18] LABS: Apearance,Urine CLOUDY (Clear); Bilirubin,Urine Negative (Negative); Blood, Urine Large mg/dL (Negative); Glucose,Urine (UA) Negative (Negative); Ketones,Urine Negative (Negative); Nitrite,Urine Negative (Negative); Protein,Urine 100 MG/DL; RBC,Urine 687 /HPF (0-4); Urine Color Yellow (Yellow); Urine Specific Gravity 1.015 (1.001-1.035); Urine Urobilinogen < 2.0 EU/DL (0.2-1.0); WBC,Urine 17 /HPF (0-6)
[2017-11-21] MEDS: INSULIN REGULAR 100 UNIT/ML SUBCUT SCH ×4 (00:59→18:33)
[2017-11-21] MEDS: THEOPHYLLINE 5.33 MG/ML 30 ML/BOTTLE PO SCH ×2 (00:59→11:17)
[2017-11-21] MEDS: ALBUTEROL/IPRATROPIUM 3 ML NEB RESP TX SCH ×4 (01:50→20:00)
[2017-11-21 04:26] LABS: Basophils % 0.1 % (0.0-0.8); Hematocrit 34.6 VOL% (35.7-47.0); Hemoglobin 11.2 GM/DL (12.0-16.0); Immature Granulocytes % 1.2 %; Immature Granulocytes Absolute 0.22 #; Lymphocytes # 1.2 10*3/uL (1.4-4.0); Lymphocytes % 6.6 % (21.3-54.2); Mean Corpuscular HGB Conc 32.4 GM/DL (32-36); Mean Corpuscular Hemoglobin 29 PG (27-34); Mean Corpuscular Volume 89.2 FL (87-102); Mean Platelet Volume 9.6 FL (9.6-12.0); Monocytes # 0.8 10*3/uL (0.11-0.8); Monocytes % 4.6 % (1.7-12.7); Neutrophils # 16.1 10*3/uL (1.4-7.4); Neutrophils % 87.5 % (38.7-73.9); Platelet Count 245 T/CUMM (130-400); Red Blood Count 3.88 MC/CUMM (3.8-5.5); Red Cell Distribution Width 16.1 % (9.3-17.3); White Blood Count 18.4 T/CUMM (4-12)
[2017-11-21 04:50] LABS: Ammonia < 10 UMOL/L (11-32)
[2017-11-21 05:01] LABS: Alanine Aminotransferase 63 U/L (13-56); Albumin 2.4 G/DL (3.4-5.0); Alkaline Phosphatase 50 U/L (45-117); Aspartate Amino Transferase 34 U/L (0-37); Blood Urea Nitrogen 31 MG/DL (7-18); Calcium 8.3 MG/DL (8.5-10.1); Glucose 119 MG/DL (74-106); Osmolality,Calculated 295.7 MOS/KG (273-304); Potassium 3.9 MMOL/L (3.5-5.1); Sodium 145 MMOL/L (136-145); Total Protein 5.3 G/DL (6.4-8.3)
[2017-11-21 07:36] LABS: Prealbumin 40.6 MG/DL (20-40)
[2017-11-21] MEDS: PANTOPRAZOLE 40 MG VIAL IV SCH ×2 (10:07→21:30)
[2017-11-21] MEDS: BACITRACIN OINT 0.9 GM PACK TOP SCH ×2 (10:07→21:36)
[2017-11-21] MEDS: NICOTINE 14 MG/24 HR PATCH TRANSDERM SCH (10:07)
[2017-11-21] MEDS: predniSONE 20 MG TABLET PO SCH (10:07)
[2017-11-21] MEDS: FUROSEMIDE 40 MG TABLET PO SCH (10:07)
[2017-11-21] MEDS ORDERED: ACETAMINOPHEN 325 MG TABLET ONE (10:58)
[2017-11-21] MEDS: ACETAMINOPHEN 325 MG TABLET PO PRN (10:58)
[2017-11-21] MEDS: FLUCONAZOLE INJ 200 MG in PREMIX 1 EACH IV SCH (11:15)
[2017-11-21] MEDS: ENOXAPARIN 40 MG/0.4 ML SYRINGE SUBCUT SCH (11:15)
[2017-11-21] MEDS ORDERED: METHYLNALTREXONE 12 MG/0.6 ML VIAL SUBCUT ONE (15:30)
[2017-11-22] MEDS: ALBUTEROL/IPRATROPIUM 3 ML NEB RESP TX SCH ×4 (00:30→19:11)
[2017-11-22] MEDS: INSULIN REGULAR 100 UNIT/ML SUBCUT SCH ×4 (02:52→17:49)
[2017-11-22] MEDS: ALBUTEROL 2.5 MG/3 ML NEB RESP TX PRN (04:35)
[2017-11-22] MEDS: PANTOPRAZOLE 40 MG VIAL IV SCH ×2 (09:49→20:48)
[2017-11-22] MEDS: FUROSEMIDE 40 MG TABLET PO SCH (09:50)
[2017-11-22] MEDS: NICOTINE 14 MG/24 HR PATCH TRANSDERM SCH (09:50)
[2017-11-22] MEDS: BACITRACIN OINT 0.9 GM PACK TOP SCH ×2 (09:50→20:48)
[2017-11-22] MEDS: predniSONE 20 MG TABLET PO SCH (09:50)
[2017-11-22] MEDS: ACETAMINOPHEN 325 MG TABLET PO PRN (11:48)
[2017-11-22] MEDS ORDERED: PHENOL 1.4% THROAT SPRAY 177 ML BOTTLE PO PRN (13:18)
[2017-11-22] MEDS: ENOXAPARIN 40 MG/0.4 ML SYRINGE SUBCUT SCH (13:52)
[2017-11-22] MEDS: DEXTROSE 5% NACL 0.9% 1,000 ML IV SCH (13:54)
[2017-11-22] MEDS: VANCOMYCIN INJ 1,000 MG in SODIUM CHLORIDE 0.9% 250 ML IV SCH (15:28)
[2017-11-23] MEDS: INSULIN REGULAR 100 UNIT/ML SUBCUT SCH ×5 (00:34→23:37)
[2017-11-23] MEDS: DEXTROSE 5% NACL 0.9% 1,000 ML IV SCH ×2 (01:35→13:30)
[2017-11-23] MEDS: ALBUTEROL/IPRATROPIUM 3 ML NEB RESP TX SCH ×4 (01:49→19:15)
[2017-11-23] MEDS: VANCOMYCIN INJ 1,000 MG in SODIUM CHLORIDE 0.9% 250 ML IV SCH ×2 (03:33→14:37)
[2017-11-23 04:29] LABS: Basophils % 0.1 % (0.0-0.8); Eosinophils # 0.1 10*3/uL (0.0-0.87); Eosinophils % 0.5 % (0.00-10.9); Hematocrit 32.2 VOL% (35.7-47.0); Hemoglobin 10.2 GM/DL (12.0-16.0); Immature Granulocytes % 0.5 %; Immature Granulocytes Absolute 0.06 #; Lymphocytes # 1.1 10*3/uL (1.4-4.0); Lymphocytes % 9.8 % (21.3-54.2); Mean Corpuscular HGB Conc 31.7 GM/DL (32-36); Mean Corpuscular Hemoglobin 28 PG (27-34); Mean Corpuscular Volume 89.7 FL (87-102); Mean Platelet Volume 10.4 FL (9.6-12.0); Monocytes # 0.5 10*3/uL (0.11-0.8); Monocytes % 4.6 % (1.7-12.7); Neutrophils # 9.8 10*3/uL (1.4-7.4); Neutrophils % 84.5 % (38.7-73.9); Platelet Count 169 T/CUMM (130-400); Red Blood Count 3.59 MC/CUMM (3.8-5.5); Red Cell Distribution Width 15.6 % (9.3-17.3); White Blood Count 11.6 T/CUMM (4-12)
[2017-11-23] MEDS: predniSONE 20 MG TABLET PO SCH (08:28)
[2017-11-23] MEDS: NICOTINE 14 MG/24 HR PATCH TRANSDERM SCH (12:15)
[2017-11-23] MEDS: BACITRACIN OINT 0.9 GM PACK TOP SCH ×2 (12:16→21:27)
[2017-11-23] MEDS: PANTOPRAZOLE 40 MG VIAL IV SCH ×2 (12:16→21:27)
[2017-11-23] MEDS: ENOXAPARIN 40 MG/0.4 ML SYRINGE SUBCUT SCH (12:17)
[2017-11-24] MEDS: ALBUTEROL/IPRATROPIUM 3 ML NEB RESP TX SCH ×4 (00:26→19:13)
[2017-11-24] MEDS: DEXTROSE 5% NACL 0.9% 1,000 ML IV SCH ×3 (02:02→17:36)
[2017-11-24] MEDS: VANCOMYCIN INJ 1,000 MG in SODIUM CHLORIDE 0.9% 250 ML IV SCH ×2 (02:06→18:17)
[2017-11-24 05:47] LABS: Basophils % 0.1 % (0.0-0.8); Eosinophils # 0.1 10*3/uL (0.0-0.87); Eosinophils % 1.2 % (0.00-10.9); Hematocrit 32.2 VOL% (35.7-47.0); Hemoglobin 10.2 GM/DL (12.0-16.0); Immature Granulocytes % 0.5 %; Immature Granulocytes Absolute 0.06 #; Lymphocytes # 1.1 10*3/uL (1.4-4.0); Lymphocytes % 10.1 % (21.3-54.2); Mean Corpuscular HGB Conc 31.7 GM/DL (32-36); Mean Corpuscular Hemoglobin 29 PG (27-34); Mean Corpuscular Volume 90.7 FL (87-102); Mean Platelet Volume 10.4 FL (9.6-12.0); Monocytes # 0.5 10*3/uL (0.11-0.8); Monocytes % 4.3 % (1.7-12.7); Neutrophils # 9.5 10*3/uL (1.4-7.4); Neutrophils % 83.8 % (38.7-73.9); Platelet Count 184 T/CUMM (130-400); Red Blood Count 3.55 MC/CUMM (3.8-5.5); Red Cell Distribution Width 15.9 % (9.3-17.3); White Blood Count 11.3 T/CUMM (4-12)
[2017-11-24] MEDS: INSULIN REGULAR 100 UNIT/ML SUBCUT SCH ×3 (06:03→18:04)
[2017-11-24] MEDS: BACITRACIN OINT 0.9 GM PACK TOP SCH ×2 (09:17→23:42)
[2017-11-24] MEDS: NICOTINE 14 MG/24 HR PATCH TRANSDERM SCH (09:17)
[2017-11-24] MEDS: PANTOPRAZOLE 40 MG VIAL IV SCH (09:17)
[2017-11-24] MEDS: predniSONE 20 MG TABLET PO SCH (09:17)
[2017-11-24] MEDS ORDERED: FLUCONAZOLE 40 MG/ML 35 ML/BOTTLE PO SCH (12:30)
[2017-11-24] MEDS: ENOXAPARIN 40 MG/0.4 ML SYRINGE SUBCUT SCH (15:37)
[2017-11-24] MEDS: FLUCONAZOLE INJ 200 MG in PREMIX 1 EACH IV SCH (15:37)
[2017-11-24] MEDS: LACTULOSE 20 GM/30 ML UDCUP PO SCH ×3 (15:38→22:06)
[2017-11-24] MEDS: ONDANSETRON 4 MG/2 ML VIAL IV PRN (22:46)
[2017-11-25] MEDS: LACTULOSE 20 GM/30 ML UDCUP PO SCH ×4 (00:05→20:15)
[2017-11-25] MEDS: ACETAMINOPHEN 325 MG TABLET PO PRN (00:21)
[2017-11-25] MEDS: INSULIN REGULAR 100 UNIT/ML SUBCUT SCH ×4 (00:30→23:22)
[2017-11-25] MEDS: ALBUTEROL/IPRATROPIUM 3 ML NEB RESP TX SCH ×4 (00:34→19:50)
[2017-11-25] MEDS: VANCOMYCIN INJ 1,000 MG in SODIUM CHLORIDE 0.9% 250 ML IV SCH ×2 (01:36→09:39)
[2017-11-25] MEDS: ONDANSETRON 4 MG/2 ML VIAL IV PRN ×3 (04:28→19:11)
[2017-11-25 05:59] LABS: Basophils % 0.2 % (0.0-0.8); Eosinophils # 0.1 10*3/uL (0.0-0.87); Eosinophils % 0.8 % (0.00-10.9); Hemoglobin 9.4 GM/DL (12.0-16.0); Immature Granulocytes % 0.6 %; Immature Granulocytes Absolute 0.07 #; Lymphocytes % 8.5 % (21.3-54.2); Mean Corpuscular HGB Conc 31.3 GM/DL (32-36); Mean Corpuscular Hemoglobin 28 PG (27-34); Mean Corpuscular Volume 90.6 FL (87-102); Mean Platelet Volume 10.6 FL (9.6-12.0); Monocytes # 0.4 10*3/uL (0.11-0.8); Monocytes % 3.6 % (1.7-12.7); Neutrophils # 10.2 10*3/uL (1.4-7.4); Neutrophils % 86.3 % (38.7-73.9); Platelet Count 179 T/CUMM (130-400); Red Blood Count 3.31 MC/CUMM (3.8-5.5); Red Cell Distribution Width 15.6 % (9.3-17.3); White Blood Count 11.8 T/CUMM (4-12)
[2017-11-25 06:11] LABS: Calcium 7.5 MG/DL (8.5-10.1); Osmolality,Calculated 294.7 MOS/KG (273-304); Potassium 3.4 MMOL/L (3.5-5.1)
[2017-11-25] MEDS: DEXTROSE 5% NACL 0.9% 1,000 ML IV SCH ×4 (07:00→20:33)
[2017-11-25] MEDS: NICOTINE 14 MG/24 HR PATCH TRANSDERM SCH (09:28)
[2017-11-25] MEDS: BACITRACIN OINT 0.9 GM PACK TOP SCH ×2 (09:29→20:14)
[2017-11-25] MEDS: predniSONE 10 MG TABLET PO SCH (09:29)
[2017-11-25] MEDS: PANTOPRAZOLE 40 MG TABLET PO SCH (09:29)
[2017-11-25] MEDS: POTASSIUM CHLORIDE 20 MEQ TABLET PO PRN ×2 (11:41→11:47)
[2017-11-25] MEDS: ENOXAPARIN 40 MG/0.4 ML SYRINGE SUBCUT SCH (11:47)
[2017-11-25] MEDS: FLUCONAZOLE INJ 200 MG in PREMIX 1 EACH IV SCH (16:19)
[2017-11-26] MEDS: ALBUTEROL/IPRATROPIUM 3 ML NEB RESP TX SCH ×4 (00:10→19:35)
[2017-11-26] MEDS: INSULIN REGULAR 100 UNIT/ML SUBCUT SCH ×4 (00:22→18:18)
[2017-11-26] MEDS: ONDANSETRON 4 MG/2 ML VIAL IV PRN ×2 (03:46→08:56)
[2017-11-26 05:55] LABS: Basophils % 0.1 % (0.0-0.8); Hematocrit 29.4 VOL% (35.7-47.0); Hemoglobin 9.5 GM/DL (12.0-16.0); Immature Granulocytes % 0.6 %; Immature Granulocytes Absolute 0.08 #; Lymphocytes # 0.8 10*3/uL (1.4-4.0); Lymphocytes % 6.1 % (21.3-54.2); Mean Corpuscular HGB Conc 32.3 GM/DL (32-36); Mean Corpuscular Hemoglobin 29 PG (27-34); Mean Corpuscular Volume 88.3 FL (87-102); Mean Platelet Volume 10.3 FL (9.6-12.0); Monocytes # 0.5 10*3/uL (0.11-0.8); Monocytes % 3.7 % (1.7-12.7); Neutrophils % 89.5 % (38.7-73.9); Platelet Count 206 T/CUMM (130-400); Red Blood Count 3.33 MC/CUMM (3.8-5.5); Red Cell Distribution Width 15.4 % (9.3-17.3); White Blood Count 12.3 T/CUMM (4-12)
[2017-11-26] MEDS: PANTOPRAZOLE 40 MG TABLET PO SCH (08:30)
[2017-11-26] MEDS: predniSONE 10 MG TABLET PO SCH (08:30)
[2017-11-26] MEDS: LACTULOSE 20 GM/30 ML UDCUP PO SCH ×3 (08:30→20:08)
[2017-11-26] MEDS: BACITRACIN OINT 0.9 GM PACK TOP SCH ×2 (13:11→20:08)
[2017-11-26] MEDS: ENOXAPARIN 40 MG/0.4 ML SYRINGE SUBCUT SCH (13:11)
[2017-11-26] MEDS: FLUCONAZOLE INJ 200 MG in PREMIX 1 EACH IV SCH (13:20)
[2017-11-26] MEDS: NICOTINE 14 MG/24 HR PATCH TRANSDERM SCH (13:28)
[2017-11-26] MEDS: DEXTROSE 5% NACL 0.9% 1,000 ML IV SCH (15:24)
[2017-11-27] MEDS: DEXTROSE 5% NACL 0.9% 1,000 ML IV SCH ×4 (00:10→23:26)
[2017-11-27] MEDS: INSULIN REGULAR 100 UNIT/ML SUBCUT SCH ×4 (00:13→18:00)
[2017-11-27] MEDS: ALBUTEROL/IPRATROPIUM 3 ML NEB RESP TX SCH ×4 (01:20→19:10)
[2017-11-27] MEDS: NICOTINE 14 MG/24 HR PATCH TRANSDERM SCH (10:01)
[2017-11-27] MEDS: NYSTATIN 500,000 UNIT/5 ML UDCUP SWISH/SWAL SCH ×4 (10:02→21:34)
[2017-11-27] MEDS: LACTULOSE 20 GM/30 ML UDCUP PO SCH ×3 (10:05→21:32)
[2017-11-27] MEDS: PANTOPRAZOLE 40 MG TABLET PO SCH (10:05)
[2017-11-27] MEDS: BACITRACIN OINT 0.9 GM PACK TOP SCH (10:07)
[2017-11-27] MEDS: ENOXAPARIN 40 MG/0.4 ML SYRINGE SUBCUT SCH (11:15)
[2017-11-28] MEDS: INSULIN REGULAR 100 UNIT/ML SUBCUT SCH ×4 (00:49→18:57)
[2017-11-28] MEDS: ALBUTEROL/IPRATROPIUM 3 ML NEB RESP TX SCH ×4 (01:27→19:34)
[2017-11-28 07:09] LABS: Calcium 7.1 MG/DL (8.5-10.1); Osmolality,Calculated 282.8 MOS/KG (273-304)
[2017-11-28 07:10] LABS: Potassium 2.4 MMOL/L (3.5-5.1)
[2017-11-28] MEDS: NYSTATIN 500,000 UNIT/5 ML UDCUP SWISH/SWAL SCH ×4 (09:30→20:44)
[2017-11-28] MEDS: NICOTINE 14 MG/24 HR PATCH TRANSDERM SCH (09:31)
[2017-11-28] MEDS: PANTOPRAZOLE 40 MG TABLET PO SCH (09:31)
[2017-11-28] MEDS: LACTULOSE 20 GM/30 ML UDCUP PO SCH ×3 (09:32→20:44)
[2017-11-28] MEDS ORDERED: POTASSIUM CHLORIDE RIDER 20 MEQ in PREMIX 1 EACH IV PRN (09:43)
[2017-11-28] MEDS: POTASSIUM CHLORIDE RIDER 10 MEQ in PREMIX 1 EACH IV PRN ×6 (10:49→19:10)
[2017-11-28] MEDS: DEXTROSE 5% NACL 0.9% 1,000 ML IV SCH (10:49)
[2017-11-28] MEDS: ENOXAPARIN 40 MG/0.4 ML SYRINGE SUBCUT SCH (12:43)
[2017-11-29] MEDS: INSULIN REGULAR 100 UNIT/ML SUBCUT SCH ×5 (00:54→23:40)
[2017-11-29] MEDS: ALBUTEROL/IPRATROPIUM 3 ML NEB RESP TX SCH ×4 (01:10→19:26)
[2017-11-29] MEDS: DEXTROSE 5% NACL 0.9% 1,000 ML IV SCH (02:30)
[2017-11-29] MEDS: POTASSIUM CHLORIDE RIDER 10 MEQ in PREMIX 1 EACH IV PRN ×2 (06:56→08:32)
[2017-11-29] MEDS: LACTULOSE 20 GM/30 ML UDCUP PO SCH ×3 (08:32→21:07)
[2017-11-29] MEDS: NYSTATIN 500,000 UNIT/5 ML UDCUP SWISH/SWAL SCH ×4 (08:55→21:07)
[2017-11-29] MEDS: PANTOPRAZOLE 40 MG TABLET PO SCH (08:56)
[2017-11-29] MEDS: NICOTINE 14 MG/24 HR PATCH TRANSDERM SCH (08:56)
[2017-11-29] MEDS: POTASSIUM CHLORIDE RIDER 10 MEQ in PREMIX 1 EACH IV SCH ×5 (09:58→18:25)
[2017-11-29] MEDS: ENOXAPARIN 40 MG/0.4 ML SYRINGE SUBCUT SCH (14:25)
[2017-11-29] MEDS ORDERED: POTASSIUM CHLORIDE 20 MEQ TABLET PO PRN (23:19)
[2017-11-30] MEDS: POTASSIUM CHLORIDE RIDER 10 MEQ in PREMIX 1 EACH IV PRN ×11 (00:02→20:12)
[2017-11-30] MEDS: ALBUTEROL/IPRATROPIUM 3 ML NEB RESP TX SCH ×4 (00:20→20:37)
[2017-11-30] MEDS: DEXTROSE 5% NACL 0.9% 1,000 ML IV SCH ×4 (02:19→13:03)
[2017-11-30 05:32] LABS: Eosinophils # 0.2 10*3/uL (0.0-0.87); Hematocrit 27.3 VOL% (35.7-47.0); Hemoglobin 8.8 GM/DL (12.0-16.0); Immature Granulocytes % 0.2 %; Immature Granulocytes Absolute 0.01 #; Lymphocytes # 0.8 10*3/uL (1.4-4.0); Lymphocytes % 14.9 % (21.3-54.2); Mean Corpuscular HGB Conc 32.2 GM/DL (32-36); Mean Corpuscular Hemoglobin 29 PG (27-34); Mean Corpuscular Volume 88.3 FL (87-102); Mean Platelet Volume 10.2 FL (9.6-12.0); Monocytes # 0.1 10*3/uL (0.11-0.8); Monocytes % 2.6 % (1.7-12.7); Neutrophils % 79.3 % (38.7-73.9); Platelet Count 226 T/CUMM (130-400); Red Blood Count 3.09 MC/CUMM (3.8-5.5)
[2017-11-30 06:01] LABS: Calcium 7.8 MG/DL (8.5-10.1); Potassium 2.7 MMOL/L (3.5-5.1)
[2017-11-30] MEDS: INSULIN REGULAR 100 UNIT/ML SUBCUT SCH ×3 (06:45→18:01)
[2017-11-30] MEDS: NICOTINE 14 MG/24 HR PATCH TRANSDERM SCH (09:02)
[2017-11-30] MEDS: PANTOPRAZOLE 40 MG TABLET PO SCH (09:03)
[2017-11-30] MEDS: LACTULOSE 20 GM/30 ML UDCUP PO SCH ×4 (09:03→20:08)
[2017-11-30] MEDS: ENOXAPARIN 40 MG/0.4 ML SYRINGE SUBCUT SCH (13:40)
[2017-11-30] MEDS: ALBUTEROL 2.5 MG/3 ML NEB RESP TX PRN (16:21)
[2017-11-30] MEDS: ACETAMINOPHEN 325 MG TABLET PO PRN ×2 (20:34→20:36)
[2017-12-01] MEDS: ALBUTEROL/IPRATROPIUM 3 ML NEB RESP TX SCH ×4 (00:08→20:12)
[2017-12-01] MEDS: POTASSIUM CHLORIDE RIDER 10 MEQ in PREMIX 1 EACH IV PRN (01:15)
[2017-12-01] MEDS: DEXTROSE 5% NACL 0.9% 1,000 ML IV SCH ×3 (01:15→23:34)
[2017-12-01] MEDS: INSULIN REGULAR 100 UNIT/ML SUBCUT SCH ×4 (01:58→18:21)
[2017-12-01] MEDS: LACTULOSE 20 GM/30 ML UDCUP PO SCH ×3 (08:34→21:59)
[2017-12-01] MEDS: NICOTINE 14 MG/24 HR PATCH TRANSDERM SCH (08:45)
[2017-12-01] MEDS: PANTOPRAZOLE 40 MG TABLET PO SCH (08:45)
[2017-12-01] MEDS: ENOXAPARIN 40 MG/0.4 ML SYRINGE SUBCUT SCH (14:10)
[2017-12-01] MEDS: ACETAMINOPHEN 325 MG TABLET PO PRN ×2 (16:40→21:59)
[2017-12-02] MEDS: ALBUTEROL/IPRATROPIUM 3 ML NEB RESP TX SCH ×4 (00:48→19:27)
[2017-12-02] MEDS: INSULIN REGULAR 100 UNIT/ML SUBCUT SCH ×4 (01:43→18:03)
[2017-12-02] MEDS: DEXTROSE 5% NACL 0.9% 1,000 ML IV SCH ×2 (06:37→23:28)
[2017-12-02] MEDS: NICOTINE 14 MG/24 HR PATCH TRANSDERM SCH (08:31)
[2017-12-02] MEDS: PANTOPRAZOLE 40 MG TABLET PO SCH (08:31)
[2017-12-02] MEDS: LACTULOSE 20 GM/30 ML UDCUP PO SCH ×3 (08:33→20:50)
[2017-12-02 11:31] LABS: Apearance,Urine CLEAR (Clear); Bacteria,Urine Moderate /HPF (Few); Bilirubin,Urine Negative (Negative); Blood, Urine Negative (Negative); Glucose,Urine (UA) Negative (Negative); Ketones,Urine Negative (Negative); Mucus,Urine Occasional /LPF (Occasional); Nitrite,Urine Negative (Negative); Protein,Urine Negative; RBC,Urine <1 /HPF (0-4); Squamous Epithelial Cell,Urine Occasional /HPF (0-10); Urine Color Yellow (Yellow); Urine Specific Gravity 1.003 (1.001-1.035); Urine Urobilinogen < 2.0 EU/DL (0.2-1.0); WBC,Urine 7 /HPF (0-6)
[2017-12-02] MEDS: LEVOFLOXACIN INJ 750 MG in PREMIX 1 EACH IV SCH (12:04)
[2017-12-02] MEDS: ACETAMINOPHEN 325 MG TABLET PO PRN (12:05)
[2017-12-02] MEDS: ONDANSETRON 4 MG/2 ML VIAL IV PRN (12:08)
[2017-12-02] MEDS: ENOXAPARIN 40 MG/0.4 ML SYRINGE SUBCUT SCH (12:09)
[2017-12-02] MEDS: VANCOMYCIN INJ 1,000 MG in SODIUM CHLORIDE 0.9% 250 ML IV SCH ×2 (15:20→21:03)
[2017-12-03] MEDS: ALBUTEROL/IPRATROPIUM 3 ML NEB RESP TX SCH ×4 (00:45→19:18)
[2017-12-03] MEDS: INSULIN REGULAR 100 UNIT/ML SUBCUT SCH ×4 (01:01→23:33)
[2017-12-03] MEDS: VANCOMYCIN INJ 1,000 MG in SODIUM CHLORIDE 0.9% 250 ML IV SCH ×3 (05:24→23:05)
[2017-12-03] MEDS: DEXTROSE 5% NACL 0.9% 1,000 ML IV SCH ×2 (05:24→23:36)
[2017-12-03 06:55] LABS: Eosinophils # 0.3 10*3/uL (0.0-0.87); Eosinophils % 9.6 % (0.00-10.9); Hematocrit 25.7 VOL% (35.7-47.0); Hemoglobin 8.1 GM/DL (12.0-16.0); Immature Granulocytes % 0.4 %; Immature Granulocytes Absolute 0.01 #; Lymphocytes # 0.6 10*3/uL (1.4-4.0); Lymphocytes % 21.4 % (21.3-54.2); Mean Corpuscular HGB Conc 31.5 GM/DL (32-36); Mean Corpuscular Hemoglobin 29 PG (27-34); Mean Corpuscular Volume 91.1 FL (87-102); Mean Platelet Volume 9.8 FL (9.6-12.0); Monocytes # 0.2 10*3/uL (0.11-0.8); Monocytes % 8.5 % (1.7-12.7); Neutrophils # 1.6 10*3/uL (1.4-7.4); Neutrophils % 60.1 % (38.7-73.9); Platelet Count 258 T/CUMM (130-400); Red Blood Count 2.82 MC/CUMM (3.8-5.5); Red Cell Distribution Width 16.6 % (9.3-17.3); White Blood Count 2.7 T/CUMM (4-12)
[2017-12-03 07:07] LABS: Calcium 7.7 MG/DL (8.5-10.1); Osmolality,Calculated 283.7 MOS/KG (273-304)
[2017-12-03 07:10] LABS: Potassium 2.4 MMOL/L (3.5-5.1)
[2017-12-03] MEDS: LACTULOSE 20 GM/30 ML UDCUP PO SCH ×3 (09:43→23:32)
[2017-12-03] MEDS: POTASSIUM CHLORIDE 20 MEQ TABLET PO SCH ×3 (09:45→15:11)
[2017-12-03] MEDS: PANTOPRAZOLE 40 MG TABLET PO SCH (09:45)
[2017-12-03] MEDS: NICOTINE 14 MG/24 HR PATCH TRANSDERM SCH (09:46)
[2017-12-03] MEDS: ENOXAPARIN 40 MG/0.4 ML SYRINGE SUBCUT SCH (13:03)
[2017-12-03] MEDS: LEVOFLOXACIN INJ 750 MG in PREMIX 1 EACH IV SCH (13:07)
[2017-12-04] MEDS: ALBUTEROL/IPRATROPIUM 3 ML NEB RESP TX SCH ×4 (00:08→18:59)
[2017-12-04] MEDS: INSULIN REGULAR 100 UNIT/ML SUBCUT SCH ×4 (01:08→20:47)
[2017-12-04 06:15] LABS: Basophils % 0.3 % (0.0-0.8); Eosinophils # 0.4 10*3/uL (0.0-0.87); Eosinophils % 11.5 % (0.00-10.9); Hemoglobin 8.1 GM/DL (12.0-16.0); Immature Granulocytes % 0.3 %; Immature Granulocytes Absolute 0.01 #; Lymphocytes % 31.5 % (21.3-54.2); Mean Corpuscular HGB Conc 32.4 GM/DL (32-36); Mean Corpuscular Hemoglobin 29 PG (27-34); Mean Corpuscular Volume 90.6 FL (87-102); Mean Platelet Volume 9.7 FL (9.6-12.0); Monocytes # 0.3 10*3/uL (0.11-0.8); Monocytes % 10.5 % (1.7-12.7); Neutrophils # 1.4 10*3/uL (1.4-7.4); Neutrophils % 45.9 % (38.7-73.9); Platelet Count 276 T/CUMM (130-400); Red Blood Count 2.76 MC/CUMM (3.8-5.5); Red Cell Distribution Width 17.5 % (9.3-17.3); White Blood Count 3.1 T/CUMM (4-12)
[2017-12-04] MEDS: DEXTROSE 5% NACL 0.9% 1,000 ML IV SCH (06:31)
[2017-12-04 06:41] LABS: Calcium 8.1 MG/DL (8.5-10.1); Osmolality,Calculated 280.8 MOS/KG (273-304); Potassium 3.2 MMOL/L (3.5-5.1)
[2017-12-04 06:45] LABS: Eosinophils 8 % (0-10); Hypochromasia 1+; Lymphocytes 37 % (20-55); Platelet Estimate Adequate; Segmented Neutrophils 47 % (50-85); Total Cells Counted 100
[2017-12-04] MEDS: VANCOMYCIN INJ 1,000 MG in SODIUM CHLORIDE 0.9% 250 ML IV SCH (07:14)
[2017-12-04] MEDS ORDERED: MAGNESIUM SULF RIDER 2 GM in PREMIX 1 EACH IV PRN (08:54)
[2017-12-04] MEDS ORDERED: MAGNESIUM SULF RIDER 4 GM in PREMIX 1 EACH IV PRN (08:54)
[2017-12-04] MEDS ORDERED: POTASSIUM CHLORIDE 20 MEQ TABLET PO ONE (08:54)
[2017-12-04] MEDS: LACTULOSE 20 GM/30 ML UDCUP PO SCH ×2 (11:20→17:47)
[2017-12-04] MEDS: PANTOPRAZOLE 40 MG TABLET PO SCH (11:21)
[2017-12-04] MEDS: NICOTINE 14 MG/24 HR PATCH TRANSDERM SCH (11:23)
[2017-12-04] MEDS ORDERED: LEVOFLOXACIN 750 MG TABLET PO SCH (11:30)
[2017-12-04] MEDS: ENOXAPARIN 40 MG/0.4 ML SYRINGE SUBCUT SCH (13:29)
[2017-12-04 19:33] VITALS: BP 142/83
== END 2017-12-03 20:20 | DRG 130 ==
LOC: N.ED 09:26 → SUATTDRO 10:56 → N.EDINP 10:56 → N.ICU 11:16 → N.3E 11-19 14:51
PROVIDERS: ADMIT Internal Medicine Cardiovascular Disease; ATTEND Internal Medicine

== ENCOUNTER 2018-01-10 20:41 | Inpatient (IN) ==
[2018-01-10] MEDS ORDERED: ALBUTEROL 2.5 MG/3 ML NEB RESP TX STA ×2 (21:14→23:06)
[2018-01-10] MEDS ORDERED: methylPREDNISolone SOD SUC 125 MG/2 ML VIAL IV ONE (21:14)
[2018-01-10 21:23] LABS: Basophils # 0.1 10*3/uL (0.0-0.2); Basophils % 0.4 % (0.0-0.8); Eosinophils # 0.6 10*3/uL (0.0-0.87); Eosinophils % 4.1 % (0.00-10.9); Hematocrit 33.8 VOL% (35.7-47.0); Hemoglobin 10.7 GM/DL (12.0-16.0); Immature Granulocytes % 0.3 %; Lymphocytes # 1.9 10*3/uL (1.4-4.0); Lymphocytes % 14.2 % (21.3-54.2); Mean Corpuscular HGB Conc 31.7 GM/DL (32-36); Mean Corpuscular Hemoglobin 29 PG (27-34); Mean Corpuscular Volume 90.9 FL (87-102); Mean Platelet Volume 9.9 FL (9.6-12.0); Monocytes # 0.7 10*3/uL (0.11-0.8); Monocytes % 4.8 % (1.7-12.7); Neutrophils # 10.3 10*3/uL (1.4-7.4); Neutrophils % 76.2 % (38.7-73.9); Platelet Count 358 T/CUMM (130-400); Red Blood Count 3.72 MC/CUMM (3.8-5.5); Red Cell Distribution Width 14.8 % (9.3-17.3); White Blood Count 13.5 T/CUMM (4-12)
[2018-01-10 21:24] LABS: Immature Granulocytes Absolute 0.04 #
[2018-01-10 21:36] LABS: Calcium 9.2 MG/DL (8.5-10.1); Osmolality,Calculated 292.1 MOS/KG (273-304); Potassium 3.1 MMOL/L (3.5-5.1)
[2018-01-10 21:41] LABS: Troponin I < 0.015 NG/ML (0.00-0.045)
[2018-01-10] MEDS ORDERED: ONDANSETRON 4 MG/2 ML VIAL IV PRN (23:07)
[2018-01-10] MEDS ORDERED: ACETAMINOPHEN 325 MG TABLET PO PRN (23:07)
[2018-01-11] MEDS ORDERED: ONDANSETRON 4 MG/2 ML VIAL IV PRN (00:27)
[2018-01-11] MEDS: LEVOFLOXACIN INJ 750 MG in PREMIX 1 EACH IV SCH (00:55)
[2018-01-11] MEDS ORDERED: MAGNESIUM SULF RIDER 2 GM in PREMIX 1 EACH IV ONE (01:00)
[2018-01-11] MEDS ORDERED: POTASSIUM CHLORIDE 20 MEQ TABLET PO ONE (01:00)
[2018-01-11 01:02] LABS: ABG Base Excess -2.5 MMOL/L (-2.5-2.5); ABG HCO3 22.2 MMOL/L (20-26); ABG Oxygen Saturation 92.5 % (95-100); ABG PH 7.419 (7.35-7.45); ABG PO2 67.3 MM HG (80-95); ABG TCO2 19.4 MMOL/L (23-27); Allen Test Positive
[2018-01-11 01:19] LABS: Basophils % 0.1 % (0.0-0.8); Eosinophils # 0.1 10*3/uL (0.0-0.87); Eosinophils % 0.7 % (0.00-10.9); Hematocrit 33.7 VOL% (35.7-47.0); Hemoglobin 10.6 GM/DL (12.0-16.0); Immature Granulocytes % 0.5 %; Immature Granulocytes Absolute 0.07 #; Lymphocytes # 0.7 10*3/uL (1.4-4.0); Lymphocytes % 4.8 % (21.3-54.2); Mean Corpuscular HGB Conc 31.5 GM/DL (32-36); Mean Corpuscular Hemoglobin 28 PG (27-34); Mean Corpuscular Volume 90.3 FL (87-102); Mean Platelet Volume 9.8 FL (9.6-12.0); Monocytes # 0.2 10*3/uL (0.11-0.8); Monocytes % 1.6 % (1.7-12.7); Neutrophils # 12.6 10*3/uL (1.4-7.4); Neutrophils % 92.3 % (38.7-73.9); Platelet Count 354 T/CUMM (130-400); Red Blood Count 3.73 MC/CUMM (3.8-5.5); Red Cell Distribution Width 14.8 % (9.3-17.3); White Blood Count 13.6 T/CUMM (4-12)
[2018-01-11 01:41] LABS: Calcium 8.6 MG/DL (8.5-10.1); Osmolality,Calculated 296.1 MOS/KG (273-304); Potassium 2.8 MMOL/L (3.5-5.1)
[2018-01-11] MEDS ORDERED: MORPHINE 4 MG/1 ML VIAL IV PRN (01:57)
[2018-01-11] MEDS ORDERED: ALBUTEROL/IPRATROPIUM 3 ML NEB RESP TX ONE (02:00)
[2018-01-11 02:06] LABS: Band Neutrophils 2 % (0-10); Lymphocytes 3 % (20-55); Platelet Estimate Normal; Segmented Neutrophils 94 % (50-85); Total Cells Counted 100
[2018-01-11] MEDS: POTASSIUM CHLORIDE RIDER 10 MEQ in PREMIX 1 EACH IV PRN ×5 (02:23→07:40)
[2018-01-11] MEDS: ALBUTEROL/IPRATROPIUM 3 ML NEB RESP TX SCH ×6 (03:44→23:49)
[2018-01-11] MEDS ORDERED: LORazepam 2 MG/1 ML VIAL IV ONE (05:30)
[2018-01-11 06:27] LABS: Basophils % 0.1 % (0.0-0.8); Eosinophils % 0.1 % (0.00-10.9); Hematocrit 34.6 VOL% (35.7-47.0); Hemoglobin 10.6 GM/DL (12.0-16.0); Immature Granulocytes % 0.6 %; Immature Granulocytes Absolute 0.08 #; Lymphocytes # 0.6 10*3/uL (1.4-4.0); Lymphocytes % 4.2 % (21.3-54.2); Mean Corpuscular HGB Conc 30.6 GM/DL (32-36); Mean Corpuscular Hemoglobin 28 PG (27-34); Mean Corpuscular Volume 90.8 FL (87-102); Mean Platelet Volume 10.5 FL (9.6-12.0); Monocytes # 0.1 10*3/uL (0.11-0.8); Monocytes % 0.7 % (1.7-12.7); Neutrophils # 13.1 10*3/uL (1.4-7.4); Neutrophils % 94.3 % (38.7-73.9); Platelet Count 315 T/CUMM (130-400); Red Blood Count 3.81 MC/CUMM (3.8-5.5); Red Cell Distribution Width 15.1 % (9.3-17.3); White Blood Count 13.9 T/CUMM (4-12)
[2018-01-11] MEDS: ALBUTEROL 2.5 MG/3 ML NEB RESP TX PRN ×2 (06:58→10:01)
[2018-01-11 07:16] LABS: Band Neutrophils 1 % (0-10); Lymphocytes 8 % (20-55); Platelet Estimate Normal; Segmented Neutrophils 91 % (50-85); Total Cells Counted 100
[2018-01-11 08:00] LABS: Calcium 8.9 MG/DL (8.5-10.1); Osmolality,Calculated 287.7 MOS/KG (273-304); Potassium 4.3 MMOL/L (3.5-5.1)
[2018-01-11] MEDS: ENOXAPARIN 40 MG/0.4 ML SYRINGE SUBCUT SCH (08:10)
[2018-01-11] MEDS: PANTOPRAZOLE 40 MG TABLET PO SCH (08:10)
[2018-01-11] MEDS: methylPREDNISolone SOD SUC 40 MG/1 ML VIAL IV SCH ×2 (08:10→16:03)
[2018-01-11] MEDS: POTASSIUM CHLORIDE 20 MEQ TABLET PO SCH ×6 (08:23→21:16)
[2018-01-11] MEDS ORDERED: ALBUTEROL 2 MG TABLET PO SCH (12:00)
[2018-01-11] MEDS: MONTELUKAST 10 MG TABLET PO SCH (12:39)
[2018-01-11] MEDS: ALBUTEROL 2 MG TABLET PO SCH ×2 (16:00→21:15)
[2018-01-11] MEDS: THEOPHYLLINE ER (24 HR) 400 MG TABLET PO SCH (16:03)
[2018-01-12] MEDS: LEVOFLOXACIN INJ 750 MG in PREMIX 1 EACH IV SCH (00:01)
[2018-01-12] MEDS: methylPREDNISolone SOD SUC 40 MG/1 ML VIAL IV SCH ×3 (00:01→17:40)
[2018-01-12] MEDS: POTASSIUM CHLORIDE 20 MEQ TABLET PO SCH ×3 (00:01→20:56)
[2018-01-12] MEDS: ALBUTEROL/IPRATROPIUM 3 ML NEB RESP TX SCH ×6 (03:22→23:51)
[2018-01-12 04:32] LABS: Basophils % 0.1 % (0.0-0.8); Hematocrit 31.1 VOL% (35.7-47.0); Hemoglobin 9.4 GM/DL (12.0-16.0); Immature Granulocytes % 0.7 %; Immature Granulocytes Absolute 0.12 #; Lymphocytes # 0.8 10*3/uL (1.4-4.0); Lymphocytes % 4.7 % (21.3-54.2); Mean Corpuscular HGB Conc 30.2 GM/DL (32-36); Mean Corpuscular Hemoglobin 28 PG (27-34); Mean Corpuscular Volume 91.7 FL (87-102); Mean Platelet Volume 10.2 FL (9.6-12.0); Monocytes # 0.6 10*3/uL (0.11-0.8); Monocytes % 3.5 % (1.7-12.7); Neutrophils # 15.2 10*3/uL (1.4-7.4); Platelet Count 345 T/CUMM (130-400); Red Blood Count 3.39 MC/CUMM (3.8-5.5); Red Cell Distribution Width 15.6 % (9.3-17.3); White Blood Count 16.7 T/CUMM (4-12)
[2018-01-12 05:16] LABS: Potassium 4.7 MMOL/L (3.5-5.1)
[2018-01-12 05:20] LABS: Lymphocytes 6 % (20-55); Platelet Estimate Normal; Segmented Neutrophils 94 % (50-85); Total Cells Counted 100
[2018-01-12] MEDS: ALBUTEROL 2 MG TABLET PO SCH ×3 (08:18→20:56)
[2018-01-12] MEDS: MONTELUKAST 10 MG TABLET PO SCH (08:18)
[2018-01-12] MEDS: THEOPHYLLINE ER (24 HR) 400 MG TABLET PO SCH ×2 (08:18→17:39)
[2018-01-12] MEDS: PANTOPRAZOLE 40 MG TABLET PO SCH (08:18)
[2018-01-12] MEDS: ENOXAPARIN 40 MG/0.4 ML SYRINGE SUBCUT SCH (08:18)
[2018-01-13] MEDS: LEVOFLOXACIN INJ 750 MG in PREMIX 1 EACH IV SCH (03:06)
[2018-01-13] MEDS: methylPREDNISolone SOD SUC 40 MG/1 ML VIAL IV SCH ×3 (03:07→16:56)
[2018-01-13] MEDS: ALBUTEROL/IPRATROPIUM 3 ML NEB RESP TX SCH ×6 (03:50→22:47)
[2018-01-13 06:21] LABS: Basophils % 0.1 % (0.0-0.8); Hematocrit 30.4 VOL% (35.7-47.0); Hemoglobin 9.5 GM/DL (12.0-16.0); Immature Granulocytes % 0.8 %; Immature Granulocytes Absolute 0.13 #; Lymphocytes # 0.6 10*3/uL (1.4-4.0); Lymphocytes % 3.6 % (21.3-54.2); Mean Corpuscular HGB Conc 31.3 GM/DL (32-36); Mean Corpuscular Hemoglobin 29 PG (27-34); Mean Corpuscular Volume 91.3 FL (87-102); Monocytes # 0.5 10*3/uL (0.11-0.8); Neutrophils # 14.2 10*3/uL (1.4-7.4); Neutrophils % 92.5 % (38.7-73.9); Platelet Count 347 T/CUMM (130-400); Red Blood Count 3.33 MC/CUMM (3.8-5.5); Red Cell Distribution Width 15.9 % (9.3-17.3); White Blood Count 15.4 T/CUMM (4-12)
[2018-01-13 06:27] LABS: Calcium 9.1 MG/DL (8.5-10.1); Osmolality,Calculated 284.3 MOS/KG (273-304); Potassium 4.1 MMOL/L (3.5-5.1)
[2018-01-13 06:29] LABS: Calcium 9.3 MG/DL (8.5-10.1); Osmolality,Calculated 283.3 MOS/KG (273-304)
[2018-01-13 06:50] LABS: Hypochromasia 1+; Lymphocytes 3 % (20-55); Ovalocytes Slight; Platelet Estimate Adequate; Segmented Neutrophils 91 % (50-85); Total Cells Counted 100
[2018-01-13] MEDS: THEOPHYLLINE ER (24 HR) 400 MG TABLET PO SCH ×2 (09:35→16:58)
[2018-01-13] MEDS: MONTELUKAST 10 MG TABLET PO SCH (09:36)
[2018-01-13] MEDS: ALBUTEROL 2 MG TABLET PO SCH ×3 (09:36→21:07)
[2018-01-13] MEDS: POTASSIUM CHLORIDE 20 MEQ TABLET PO SCH ×2 (09:37→21:07)
[2018-01-13] MEDS: PANTOPRAZOLE 40 MG TABLET PO SCH (09:37)
[2018-01-13] MEDS: ENOXAPARIN 40 MG/0.4 ML SYRINGE SUBCUT SCH (09:41)
[2018-01-13] MEDS: OXYMETAZOLINE 0.05% NASAL SPRAY 15 ML BOTTLE BOTH NARES SCH ×2 (16:56→21:07)
[2018-01-14] MEDS: methylPREDNISolone SOD SUC 40 MG/1 ML VIAL IV SCH ×3 (00:09→20:33)
[2018-01-14] MEDS: LEVOFLOXACIN INJ 750 MG in PREMIX 1 EACH IV SCH (00:10)
[2018-01-14] MEDS: ALBUTEROL/IPRATROPIUM 3 ML NEB RESP TX SCH ×6 (02:28→23:56)
[2018-01-14 05:22] LABS: Basophils % 0.1 % (0.0-0.8); Hematocrit 30.6 VOL% (35.7-47.0); Hemoglobin 9.7 GM/DL (12.0-16.0); Immature Granulocytes % 1.8 %; Lymphocytes # 0.7 10*3/uL (1.4-4.0); Lymphocytes % 5.8 % (21.3-54.2); Mean Corpuscular HGB Conc 31.7 GM/DL (32-36); Mean Corpuscular Hemoglobin 28 PG (27-34); Mean Corpuscular Volume 89.7 FL (87-102); Monocytes # 0.3 10*3/uL (0.11-0.8); Monocytes % 2.9 % (1.7-12.7); Neutrophils % 89.4 % (38.7-73.9); Platelet Count 336 T/CUMM (130-400); Red Blood Count 3.41 MC/CUMM (3.8-5.5); Red Cell Distribution Width 15.5 % (9.3-17.3); White Blood Count 11.2 T/CUMM (4-12)
[2018-01-14 05:36] LABS: Calcium 8.4 MG/DL (8.5-10.1); Osmolality,Calculated 285.1 MOS/KG (273-304); Potassium 3.8 MMOL/L (3.5-5.1)
[2018-01-14 05:38] LABS: Calcium 8.8 MG/DL (8.5-10.1); Osmolality,Calculated 285.1 MOS/KG (273-304); Potassium 3.8 MMOL/L (3.5-5.1)
[2018-01-14] MEDS: PANTOPRAZOLE 40 MG TABLET PO SCH (08:51)
[2018-01-14] MEDS: POTASSIUM CHLORIDE 20 MEQ TABLET PO SCH ×2 (08:51→20:32)
[2018-01-14] MEDS: MONTELUKAST 10 MG TABLET PO SCH (08:51)
[2018-01-14] MEDS: THEOPHYLLINE ER (24 HR) 400 MG TABLET PO SCH ×2 (08:51→16:58)
[2018-01-14] MEDS: ALBUTEROL 2 MG TABLET PO SCH ×3 (08:51→20:33)
[2018-01-14] MEDS: ENOXAPARIN 40 MG/0.4 ML SYRINGE SUBCUT SCH ×2 (08:52→08:58)
[2018-01-14] MEDS: OXYMETAZOLINE 0.05% NASAL SPRAY 15 ML BOTTLE BOTH NARES SCH ×2 (08:52→20:34)
[2018-01-15] MEDS: LEVOFLOXACIN INJ 750 MG in PREMIX 1 EACH IV SCH (00:06)
[2018-01-15] MEDS: ALBUTEROL/IPRATROPIUM 3 ML NEB RESP TX SCH ×2 (03:45→07:43)
[2018-01-15 07:22] VITALS: BP 139/81
[2018-01-15 07:31] LABS: Basophils % 0.2 % (0.0-0.8); Hematocrit 35.9 VOL% (35.7-47.0); Hemoglobin 11.6 GM/DL (12.0-16.0); Immature Granulocytes % 2.1 %; Immature Granulocytes Absolute 0.24 #; Lymphocytes # 1.2 10*3/uL (1.4-4.0); Lymphocytes % 10.5 % (21.3-54.2); Mean Corpuscular HGB Conc 32.3 GM/DL (32-36); Mean Corpuscular Hemoglobin 29 PG (27-34); Mean Corpuscular Volume 88.6 FL (87-102); Mean Platelet Volume 10.1 FL (9.6-12.0); Monocytes # 0.4 10*3/uL (0.11-0.8); Monocytes % 3.8 % (1.7-12.7); NRBC # 0.02 10*3/uL; Neutrophils # 9.5 10*3/uL (1.4-7.4); Neutrophils % 83.4 % (38.7-73.9); Platelet Count 411 T/CUMM (130-400); Red Blood Count 4.05 MC/CUMM (3.8-5.5); White Blood Count 11.4 T/CUMM (4-12)
[2018-01-15 08:04] LABS: Calcium 9.3 MG/DL (8.5-10.1); Osmolality,Calculated 280.4 MOS/KG (273-304); Potassium 3.7 MMOL/L (3.5-5.1)
[2018-01-15] MEDS: THEOPHYLLINE ER (24 HR) 400 MG TABLET PO SCH (08:41)
[2018-01-15] MEDS: PANTOPRAZOLE 40 MG TABLET PO SCH (08:41)
[2018-01-15] MEDS: POTASSIUM CHLORIDE 20 MEQ TABLET PO SCH (08:41)
[2018-01-15] MEDS: MONTELUKAST 10 MG TABLET PO SCH (08:42)
[2018-01-15] MEDS: OXYMETAZOLINE 0.05% NASAL SPRAY 15 ML BOTTLE BOTH NARES SCH (08:42)
[2018-01-15] MEDS: ALBUTEROL 2 MG TABLET PO SCH (08:42)
[2018-01-15] MEDS: ENOXAPARIN 40 MG/0.4 ML SYRINGE SUBCUT SCH (08:42)
[2018-01-15] MEDS ORDERED: predniSONE 20 MG TABLET PO SCH (09:00)
== END 2018-01-15 10:55 | disposition home or self-care (01) | DRG 140 ==
LOC: N.ED 20:41 → N.EDINP 23:07 → SUATTDRO 23:07 → N.CC 23:47 → N.5E 01-12 14:32
PROVIDERS: ADMIT Emergency Medicine; ATTEND Internal Medicine

== ENCOUNTER 2018-08-03 15:24 | Inpatient (IN) ==
[2018-08-03] MEDS ORDERED: methylPREDNISolone SOD SUC 125 MG/2 ML VIAL IV STA (15:53)
[2018-08-03] MEDS ORDERED: ALBUTEROL/IPRATROPIUM 3 ML NEB RESP TX STA (15:53)
[2018-08-03 16:09] LABS: Basophils % 0.3 % (0.0-0.8); Lymphocytes % 14.2 % (21.3-54.2); Monocytes # 0.6 10*3/uL (0.11-0.8)
[2018-08-03 16:25] LABS: Calcium 8.8 MG/DL (8.5-10.1); Potassium 3.4 MMOL/L (3.5-5.1)
[2018-08-03 16:29] LABS: Eosinophils # 0.5 10*3/uL (0.0-0.87); Eosinophils % 6.8 % (0.00-10.9); Hematocrit 40.6 VOL% (35.7-47.0); Hemoglobin 12.3 GM/DL (12.0-16.0); Immature Granulocytes % 0.4 %; Immature Granulocytes Absolute 0.03 #; Lymphocytes # 1.1 10*3/uL (1.4-4.0); Mean Corpuscular HGB Conc 30.3 GM/DL (32-36); Mean Corpuscular Hemoglobin 27 PG (27-34); Mean Platelet Volume 9.8 FL (9.6-12.0); Monocytes % 7.9 % (1.7-12.7); Neutrophils # 5.4 10*3/uL (1.4-7.4); Neutrophils % 70.4 % (38.7-73.9); Platelet Count 344 T/CUMM (130-400); Red Blood Count 4.51 MC/CUMM (3.8-5.5); Red Cell Distribution Width 13.4 % (9.3-17.3); White Blood Count 7.7 T/CUMM (4-12)
[2018-08-03] MEDS ORDERED: LORazepam 2 MG/1 ML VIAL IV STA (16:31)
[2018-08-03] MEDS ORDERED: LORazepam 2 MG/1 ML VIAL ONE (16:32)
[2018-08-03] MEDS ORDERED: ONDANSETRON 4 MG/2 ML VIAL IV PRN (17:20)
[2018-08-03] MEDS ORDERED: ACETAMINOPHEN 325 MG TABLET PO PRN (17:20)
[2018-08-03] MEDS ORDERED: ALBUTEROL 1.25 MG/3 ML NEB RESP TX PRN (17:45)
[2018-08-03] MEDS ORDERED: LEVOFLOXACIN INJ 150 ML IV ONE (17:59)
[2018-08-03] MEDS: LEVOFLOXACIN INJ 750 MG in PREMIX 1 EACH IV SCH (18:02)
[2018-08-03] MEDS: ALBUTEROL/IPRATROPIUM 3 ML NEB RESP TX SCH (19:23)
[2018-08-03] MEDS: POTASSIUM CHLORIDE 20 MEQ TABLET PO PRN (21:45)
[2018-08-03] MEDS: ENOXAPARIN 40 MG/0.4 ML SYRINGE SUBCUT SCH (22:07)
[2018-08-03] MEDS: DEXTROMETHORPHAN PO SCH (22:56)
[2018-08-03] MEDS: [UNRECOGNIZED DRUG - OTHER] PO SCH (22:56)
[2018-08-03] MEDS: PROMETHAZINE PO SCH (22:56)
[2018-08-04] MEDS: ALBUTEROL/IPRATROPIUM 3 ML NEB RESP TX SCH ×4 (00:05→18:43)
[2018-08-04] MEDS: methylPREDNISolone SOD SUC 40 MG/1 ML VIAL IV SCH ×4 (00:13→23:47)
[2018-08-04] MEDS: POTASSIUM CHLORIDE 20 MEQ TABLET PO PRN ×2 (00:13→02:01)
[2018-08-04] MEDS ORDERED: CYCLOBENZAPRINE 10 MG TABLET PO ONE (01:18)
[2018-08-04 07:18] LABS: Basophils % 0.1 % (0.0-0.8); Hematocrit 37.1 VOL% (35.7-47.0); Hemoglobin 11.5 GM/DL (12.0-16.0); Immature Granulocytes % 0.3 %; Immature Granulocytes Absolute 0.03 #; Lymphocytes # 0.8 10*3/uL (1.4-4.0); Lymphocytes % 9.1 % (21.3-54.2); Mean Corpuscular Hemoglobin 27 PG (27-34); Mean Corpuscular Volume 88.1 FL (87-102); Mean Platelet Volume 9.8 FL (9.6-12.0); Monocytes # 0.2 10*3/uL (0.11-0.8); Monocytes % 2.3 % (1.7-12.7); Neutrophils # 7.6 10*3/uL (1.4-7.4); Neutrophils % 88.2 % (38.7-73.9); Platelet Count 327 T/CUMM (130-400); Red Blood Count 4.21 MC/CUMM (3.8-5.5); Red Cell Distribution Width 13.8 % (9.3-17.3); White Blood Count 8.6 T/CUMM (4-12)
[2018-08-04 07:32] LABS: Calcium 9.9 MG/DL (8.5-10.1); Osmolality,Calculated 278.5 MOS/KG (273-304); Potassium 4.9 MMOL/L (3.5-5.1)
[2018-08-04] MEDS: PANTOPRAZOLE 40 MG TABLET PO SCH (08:50)
[2018-08-04] MEDS: GLYCOPYRROLATE INH SCH ×2 (08:51→21:16)
[2018-08-04] MEDS: FORMOTEROL FUM INH SCH ×2 (08:51→21:16)
[2018-08-04] MEDS: LEVOFLOXACIN INJ 750 MG in PREMIX 1 EACH IV SCH (17:32)
[2018-08-04] MEDS: ENOXAPARIN 40 MG/0.4 ML SYRINGE SUBCUT SCH (21:16)
[2018-08-04] MEDS: PROMETHAZINE PO SCH (21:17)
[2018-08-04] MEDS: [UNRECOGNIZED DRUG - OTHER] PO SCH (21:17)
[2018-08-04] MEDS: DEXTROMETHORPHAN PO SCH (21:17)
[2018-08-05] MEDS: ALBUTEROL/IPRATROPIUM 3 ML NEB RESP TX SCH ×2 (00:32→07:17)
[2018-08-05 08:29] VITALS: BP 102/64
[2018-08-05] MEDS: PANTOPRAZOLE 40 MG TABLET PO SCH (09:26)
[2018-08-05] MEDS: FORMOTEROL FUM INH SCH (09:30)
[2018-08-05] MEDS: GLYCOPYRROLATE INH SCH (09:30)
[2018-08-05] MEDS ORDERED: methylPREDNISolone SOD SUC 40 MG/1 ML VIAL IV SCH (09:30)
[2018-08-05] MEDS: methylPREDNISolone SOD SUC 40 MG/1 ML VIAL IV SCH (09:55)
== END 2018-08-05 10:50 | disposition home or self-care (01) | DRG 140 ==
LOC: N.ED 15:24 → N.EDINP 17:20 → N.5E 20:42
PROVIDERS: ADMIT Internal Medicine; ATTEND Internal Medicine

== ENCOUNTER 2021-02-27 05:44 | Observation (INO) ==
[2021-02-27] MEDS ORDERED: VANCOMYCIN INJ 1,000 MG in SODIUM CHLORIDE 0.9% 250 ML IV ONE (06:00)
[2021-02-27] MEDS ORDERED: GABAPENTIN 400 MG CAPSULE PO ONE (06:00)
[2021-02-27] MEDS ORDERED: FAMOTIDINE 20 MG TABLET PO ONE (06:00)
[2021-02-27] MEDS: ACETAMINOPHEN 500 MG TABLET PO ONE ×2 (06:56→07:06)
[2021-02-27] MEDS ORDERED: LACTATED RINGERS 1,000 ML IV SCH (07:00)
[2021-02-27] MEDS ORDERED: BACITRACIN OINT 0.9 GM PACK TOP ONE (07:15)
[2021-02-27] MEDS ORDERED: LIDOCAINE 2% 5 ML VIAL ONE (07:27)
[2021-02-27] MEDS ORDERED: propofoL 200 MG/20 ML VIAL IV ONE ×2 (07:27→08:10)
[2021-02-27] MEDS ORDERED: fentaNYL 100 MCG/2 ML VIAL ONE (07:28)
[2021-02-27] MEDS ORDERED: MIDAZOLAM 2 MG/2 ML VIAL ONE (07:28)
[2021-02-27] MEDS ORDERED: BUPIVACAINE MPF 0.25% 30 ML VIAL ONE (07:42)
[2021-02-27] MEDS ORDERED: DEXAMETHASONE 4 MG/1 ML VIAL ONE (07:42)
[2021-02-27] MEDS ORDERED: LIDOCAINE 1% 5 ML VIAL ONE (07:42)
[2021-02-27] MEDS ORDERED: BUPIVACAINE SPINAL 0.75% 2 ML AMP SPINAL ONE (07:54)
[2021-02-27] MEDS ORDERED: SODIUM CHLORIDE 0.9% 250 ML IV ONE (08:10)
[2021-02-27] MEDS ORDERED: ePHEDrine 50 MG/ML VIAL ONE ×2 (09:26→10:19)
[2021-02-27] MEDS ORDERED: TRANEXAMIC ACID 1,000 MG/10 ML VIAL ONE (09:35)
[2021-02-27] MEDS ORDERED: LACTATED RINGERS 0 ML IV ONE (10:01)
[2021-02-27] MEDS ORDERED: SODIUM CHLORIDE 0.9% 1,000 ML IV ONE (10:01)
[2021-02-27] MEDS ORDERED: ALBUTEROL 2.5 MG/3 ML NEB RESP TX PRN (10:22)
[2021-02-27] MEDS ORDERED: ALBUTEROL SULFATE INH PRN (10:22)
[2021-02-27] MEDS ORDERED: ZALEPLON 5 MG CAPSULE PO PRN (10:23)
[2021-02-27] MEDS ORDERED: MAGNESIUM HYDROXIDE SUSP 30 ML UDCUP PO PRN (10:23)
[2021-02-27] MEDS ORDERED: ONDANSETRON 4 MG/2 ML VIAL IV PRN (10:23)
[2021-02-27] MEDS ORDERED: diphenhydrAMINE CAP 25 MG CAPSULE PO PRN (10:23)
[2021-02-27 11:06] LABS: Bilirubin,Urine Negative (Negative); Blood, Urine Negative (Negative); Glucose,Urine (UA) Negative (Negative); Ketones,Urine Negative (Negative); Mucus,Urine Occasional /LPF (Occasional); Nitrite,Urine Negative (Negative); Protein,Urine Negative; RBC,Urine 1 /HPF (0-4); Urine Appearance CLEAR (Clear); Urine Color Straw (Yellow); Urine Specific Gravity 1.004 (1.001-1.035); Urine Urobilinogen < 2.0 EU/DL (0.2-1.0)
[2021-02-27] MEDS: KETOROLAC 30 MG/1 ML VIAL IV SCH ×2 (12:54→19:34)
[2021-02-27] MEDS: LACTATED RINGERS 1,000 ML IV SCH ×2 (15:05→23:14)
[2021-02-27] MEDS: DOCUSATE SODIUM 100 MG CAPSULE PO SCH (21:39)
[2021-02-28] MEDS: MORPHINE 2 MG/1 ML SYRINGE IV PRN ×3 (00:46→16:23)
[2021-02-28] MEDS: KETOROLAC 30 MG/1 ML VIAL IV SCH ×2 (01:19→07:37)
[2021-02-28] MEDS: LACTATED RINGERS 1,000 ML IV SCH ×2 (01:26→05:42)
[2021-02-28] MEDS: FONDAPARINUX 2.5 MG/0.5 ML SYRINGE SUBCUT SCH (05:29)
[2021-02-28 06:10] LABS: Basophils % 0.1 % (0.0-0.8); Eosinophils % 0.1 % (0.00-10.9); Hematocrit 31.1 VOL% (35.7-47.0); Hemoglobin 9.6 GM/DL (12.0-16.0); Immature Granulocytes % 0.3 %; Immature Granulocytes Absolute 0.03 #; Lymphocytes # 1.1 10*3/uL (1.4-4.0); Lymphocytes % 12.2 % (21.3-54.2); Mean Corpuscular HGB Conc 30.9 GM/DL (32-36); Mean Platelet Volume 9.4 FL (9.6-12.0); Monocytes % 6.7 % (1.7-12.7); Neutrophils % 80.6 % (38.7-73.9); Platelet Count 303 T/CUMM (130-400); Red Blood Count 3.38 MC/CUMM (3.8-5.5); Red Cell Distribution Width 13.3 % (9.3-17.3); White Blood Count 8.8 T/CUMM (4-12)
[2021-02-28 06:33] LABS: Calcium 8.8 MG/DL (8.5-10.1); Osmolality,Calculated 279.3 MOS/KG (273-304); Potassium 4.3 MMOL/L (3.5-5.1)
[2021-02-28] MEDS ORDERED: KETOROLAC 30 MG/1 ML VIAL IV SCH (07:30)
[2021-02-28] MEDS: DOCUSATE SODIUM 100 MG CAPSULE PO SCH ×2 (08:48→20:24)
[2021-02-28] MEDS: Fluticasone-Umeclidin-Vilanter [Trelegy Ellipta] 100-62.5-25 mcg INH SCH (08:49)
[2021-02-28] MEDS: ROFLUMILAST 500 MCG TABLET PO SCH (08:49)
[2021-03-01] MEDS: MORPHINE 2 MG/1 ML SYRINGE IV PRN (01:55)
[2021-03-01 05:13] LABS: Basophils % 0.3 % (0.0-0.8); Eosinophils # 0.2 10*3/uL (0.0-0.87); Eosinophils % 1.8 % (0.00-10.9); Hematocrit 31.3 VOL% (35.7-47.0); Hemoglobin 9.7 GM/DL (12.0-16.0); Immature Granulocytes % 0.4 %; Immature Granulocytes Absolute 0.04 #; Lymphocytes # 1.3 10*3/uL (1.4-4.0); Lymphocytes % 14.2 % (21.3-54.2); Mean Corpuscular Volume 91.3 FL (87-102); Mean Platelet Volume 9.5 FL (9.6-12.0); Monocytes % 6.7 % (1.7-12.7); Neutrophils % 76.6 % (38.7-73.9); Platelet Count 303 T/CUMM (130-400); Red Blood Count 3.43 MC/CUMM (3.8-5.5); Red Cell Distribution Width 13.4 % (9.3-17.3); White Blood Count 9.1 T/CUMM (4-12)
[2021-03-01] MEDS: FONDAPARINUX 2.5 MG/0.5 ML SYRINGE SUBCUT SCH (05:18)
[2021-03-01] MEDS: ROFLUMILAST 500 MCG TABLET PO SCH (08:22)
[2021-03-01] MEDS: DOCUSATE SODIUM 100 MG CAPSULE PO SCH (08:22)
[2021-03-01] MEDS: Fluticasone-Umeclidin-Vilanter [Trelegy Ellipta] 100-62.5-25 mcg INH SCH (08:23)
[2021-03-01 11:28] VITALS: BP 119/71
== END 2021-03-01 12:09 | disposition home health service (06) ==
LOC: N.SDSINP 05:44 → N.OR 05:44 → N.SDSINP 05:46 → EDSTATUS 11:00 → N.3E 17:11
PROVIDERS: ADMIT Orthopaedic Surgery; ATTEND Orthopaedic Surgery